=== PATIENT | male | born 1935 | race Caucasian/White ===

== ENCOUNTER 2022-08-11 07:39 | Inpatient (IN) ==
--- NOTE | 2022-08-11 08:12 | Emergency Department Note ---
History of Present Illness General Chief complaint: Chest Pain Stated complaint: CHEST PAIN Time Seen by Provider: 08/11/22 08:00 Source: patient, family ( and daughter who are at the bedide) and RN notes reviewed Mode of arrival: ambulatory Limitations: no limitations History of Present Illness Maximum Pain Intensity: 7 This patient is a 87-year-old male comes in after having achy lower chest/epigastric area pain since around 8:00 he said nothing particular makes it better or worse. He says certain movements may make it worse. It has no pleuritic component no change with breathing. He tried Tums and Rebecca-Pitman without relief. He has had this before but not nearly as long-lasting. He has no known cardiac disease although his brother and father both had bypasses. He reports that he has had no recent cardiac work-up or stress test. Denies nausea vomiting or shortness of breath. No fall or trauma no blood or melena stool. Occasional cough. No fever chills no fall or injury. He feels like if he burps he would feel better. No acid taste in his mouth. Home Medications Medication Instructions Recorded Confirmed Type amlodipine 5 mg tablet 5 mg PO QPM 07/18/22 07/24/22 History ascorbic acid (vitamin C) 1,000 mg 1 g PO QAM 07/18/22 07/24/22 History tablet (Vitamin C) aspirin 81 mg capsule 81 mg PO QPM 07/18/22 07/24/22 History atorvastatin 20 mg tablet (Lipitor) 20 mg PO PM 07/18/22 07/24/22 History cholecalciferol (vitamin D3) 25 25 mcg PO QAM 07/18/22 07/24/22 History mcg (1,000 unit) tablet (Vitamin D3) furosemide 20 mg tablet (Lasix) 20 mg PO QAM 07/18/22 07/24/22 History gabapentin 300 mg tablet 300 mg PO HS 07/18/22 07/24/22 History meclizine 12.5 mg tablet 12.5 mg PO UD PRN Vertigo 07/18/22 07/24/22 History omeprazole 20 mg capsule,delayed 20 mg PO QPM 07/18/22 07/24/22 History release saw palmetto 500 mg capsule 500 mg PO QDL 07/18/22 07/24/22 History Allergies Allergy/AdvReac Type Severity Reaction Status Date / Time No Known Allergies Allergy Verified 07/24/22 08:17 Past Med/Surg History Medical History GERD (gastroesophageal reflux disease) Hearing deficit BL BURGESS HLD (hyperlipidemia) HTN (hypertension) Osteoarthritis Vertigo Surgical History History of appendectomy History of hernia surgery History of tonsillectomy Family History Other No family history of adverse response to anesthesia Social History Smoking Status: Never smoker Second Hand Exposure: No; Hx Alcohol Use: No Hx Substance Use: No Preferred Language: Indian Communication Ability: Effective Telephone Diaphragm Assembler Required: No Current Living Situation: Spouse Feels Safe at Home: Yes Assistive Devices: Glasses and Hearing Aid - Bilateral Review of Systems A total of 10 systems reviewed and were otherwise negative Physical Exam Vital Signs Vital Signs - 24 hr 08/11/22 07:47 08/11/22 07:57 08/11/22 08:07 Temperature 36.7 C Temperature Source Temporal Artery Scan Pulse Rate 76 82 Pulse Rate [Apical] 79 Pulse Rhythm [Apical] Pulse Strength [Apical] Respiratory Rate 16 18 Respiratory Effort / Characteristics Non-Labored Spontaneous Respiratory Depth Normal Normal Respiratory Pattern Blood Pressure 169/91 H Blood Pressure [Right Arm] 154/101 H Blood Pressure Mean 117 Blood Pressure Mean [Right Arm] 118 Blood Pressure Position [Right Arm] Pulse Oximetry 96 96 Oxygen Delivery Method Room Air Room Air Oxygen Flow Rate Sepsis Recent Fever Within 48 Hours No Sepsis New/Unexplained Change in Mental Status No Sepsis Action Taken by Nursing No Action Required 08/11/22 08:15 08/11/22 08:16 08/11/22 11:45 Temperature Temperature Source Pulse Rate 74 78 Pulse Rate [Apical] Pulse Rhythm [Apical] Pulse Strength [Apical] Respiratory Rate 16 14 Respiratory Effort / Characteristics Respiratory Depth Respiratory Pattern Blood Pressure 143/82 H 143/82 H Blood Pressure [Right Arm] Blood Pressure Mean 102 Blood Pressure Mean [Right Arm] Blood Pressure Position [Right Arm] Pulse Oximetry 96 95 96 Oxygen Delivery Method Room Air Room Air Room Air Oxygen Flow Rate Sepsis Recent Fever Within 48 Hours Sepsis New/Unexplained Change in Mental Status Sepsis Action Taken by Nursing 08/11/22 13:30 08/11/22 13:40 08/11/22 13:50 Temperature 36.3 C L Temperature Source Temporal Artery Scan Pulse Rate Pulse Rate [Apical] 83 91 H 89 Pulse Rhythm [Apical] Regular Regular Regular Pulse Strength [Apical] Normal Normal Normal Respiratory Rate 16 18 16 Respiratory Effort / Characteristics Non-Labored Spontaneous Non-Labored Spontaneous Non-Labored Spontaneous Respiratory Depth Normal Normal Normal Respiratory Pattern Regular Regular Regular Blood Pressure Blood Pressure [Right Arm] 130/66 131/70 122/65 Blood Pressure Mean Blood Pressure Mean [Right Arm] 87 90 84 Blood Pressure Position [Right Arm] Lying Semi-fowlers Semi-fowlers Pulse Oximetry 95 94 95 Oxygen Delivery Method Oxymask Oxymask Oxymask Oxygen Flow Rate 6 4 4 Sepsis Recent Fever Within 48 Hours Sepsis New/Unexplained Change in Mental Status Sepsis Action Taken by Nursing 08/11/22 14:00 Temperature Temperature Source Pulse Rate Pulse Rate [Apical] 87 Pulse Rhythm [Apical] Regular Pulse Strength [Apical] Normal Respiratory Rate 16 Respiratory Effort / Characteristics Non-Labored Spontaneous Respiratory Depth Normal Respiratory Pattern Regular Blood Pressure Blood Pressure [Right Arm] 114/65 Blood Pressure Mean Blood Pressure Mean [Right Arm] 81 Blood Pressure Position [Right Arm] Semi-fowlers Pulse Oximetry 91 Oxygen Delivery Method Room Air Oxygen Flow Rate Sepsis Recent Fever Within 48 Hours Sepsis New/Unexplained Change in Mental Status Sepsis Action Taken by Nursing General: Well developed well nourished [id number] older male who in no acute distress, breathing comfortably on room air. Normal speech HEENT: Normal cephalic atraumatic. Pupils are equal round and reactive to light. Extraocular movements are intact. Oropharynx is pink with moist mucous membranes. No swelling of the mouth lips or tongue. Neck: Supple with a midline trachea. No meningeal signs or stiffness, no JVD or bruits. No Stridor. Chest: Clear to auscultation bilaterally. No wheezes or rhonchi. No increased work of breathing. Heart: Regular rate and rhythm without murmurs or gallops. Abdomen: Soft, moderately tender in the right upper quadrant primarily., nondistended without rebound guarding or rigidity. Extremities: No cyanosis clubbing or edema. No calf tenderness or assymetry Spine/Back. Non tender to palpation. No CVA tenderness Skin: Good turgor without rashes. Neurologic exam: Cranial nerves two through 12 are intact. Motor and sensation are intact and symmetrical throughout. Course Administered Medications Sodium Chloride (Nss) 500 mls @ 125 mls/hr IV .Q4H SIMON Stop: 09/10/22 10:14 Last Admin: 08/11/22 10:39 Dose: Not Given Documented By: TJ Discontinued Medications Bupivacaine HCl/Epinephrine Bitart (Bupivacaine/Epinephrine 0.25% 1:200,000 30 M l Vial) Confirm Administered Dose 30 ml .ROUTE .STK-MED ONE Stop: 08/11/22 11:48 Last Admin: 08/11/22 13:22 Dose: 30 ml Documented By: PERRY Sodium Chloride (Nss 1000ml) 1,000 mls @ 999 mls/hr IV .Q1H1M SIMON Stop: 08/11/22 11:45 Last Admin: 08/11/22 10:39 Dose: 999 mls/hr Documented By: TJ Piperacillin Sod/Tazobactam (Sod 3.375 gm/ Dextrose) 100 ml in 115 mls @ 230 ml s/hr IV NOW STA Stop: 08/11/22 11:29 Last Admin: 08/11/22 11:39 Dose: 230 mls/hr Documented By: DEV Ioversol (Optiray 350 100ml) 88 ml IV ONCE ONE Stop: 08/11/22 09:37 Last Admin: 08/11/22 09:40 Dose: 88 ml Documented By: ELIAS Morphine Sulfate (Morphine Sulfate 2 Mg/Ml Carp) 2 mg IV NOW STA Stop: 08/11/22 08:20 Last Admin: 08/11/22 08:26 Dose: 2 mg Documented By: TJ Ondansetron HCl (Ondansetron Inj 2 Mg/Ml 2 Ml Vial) 4 mg IV NOW STA Stop: 08/11/22 08:20 Last Admin: 08/11/22 08:25 Dose: 4 mg Documented By: TJ Medical Decision Making Differential Diagnosis Acute coronary syndrome, arrhythmia, intra-abdominal process, pancreatitis, gallbladder disease, electrolyte or metabolic abnormal Medical Records Attestation: I reviewed the patient's medical records. Home Medications Current Medication List: was personally reviewed by me Laboratory Data Attestation: I reviewed the patient's lab results. 08/11/22 08:00 08/11/22 08:00 Lab Results 08/11/22 08/11/22 08/11/22 Range/Units 08:00 08:00 08:00 WBC 13.23 H (4.8-10.8) K/ul RBC 5.93 (4.70-6.10) M/uL Hgb 17.6 (14.0-18.0) g/dl Hct 52.2 H (42.0-52.0) % MCV 88.0 (80.0-100.0) fL MCH 29.7 (25.0-34.0) pg MCHC 33.7 (32.0-36.0) g/dL RDW Std Deviation 44.5 (36.4-46.3) fL RDW Coeff of Wendy 13.8 (11.5-14.5) % Plt Count 196 (130-400) K/uL MPV 10.1 (9.4-12.4) fL Immature Gran % (Auto) 0.7 % Neut % (Auto) 87.2 % Lymph % (Auto) 4.8 % [place] % (Auto) 7.1 % Eos % (Auto) 0.0 % Baso % (Auto) 0.2 % Neut # (Auto) 11.54 H (1.40-6.50) K/uL Lymph # (Auto) 0.63 L (1.2-3.4) K/uL [place] # (Auto) 0.94 H (0.11-0.59) K/uL Eos # (Auto) 0.00 (0-0.50) K/uL Baso # (Auto) 0.03 (0-0.2) K/uL Immature Gran # (Auto) 0.09 (0.01-0.20) K/uL PT 10.9 (9.0-12.0) Seconds INR 1.0 (0.9-1.1) APTT 26.8 (21.0-31.0) Seconds PTT Ratio 1.0 Sodium 139 (136-145) mmol/L Potassium 4.0 (3.5-5.1) mmol/L Chloride 100 (98-107) mmol/L Carbon Dioxide 26 (21-32) mmol/L Anion Gap 13 H (3-11) BUN 24 H (6-23) mg/dl Creatinine 0.89 (0.6-1.4) mg/dl Est Cr Clr Drug Dosing 65.4 ml/min Est GFR ( Amer) 89.7 ml/min Est GFR (Non-Af Amer) 77.4 ml/min BUN/Creatinine Ratio 27.0 H (10-20) Glucose 156 H (70-99(Fasting)) mg/dl Calcium 9.5 (8.6-10.3) mg/dl Total Bilirubin 0.6 (0.2-1.0) mg/dl AST 16 (13-39) U/L ALT 17 (7-52) U/L Alkaline Phosphatase 51 (34-104) U/L Troponin I High Sens 6.8 (0-20) pg/ml Total Protein 7.5 (6.0-8.3) gm/dl Albumin 4.8 (3.4-5.0) gm/dl Globulin 2.7 (2.5-4.0) gm/dl Albumin/Globulin Ratio 1.8 (0.9-2) Lipase 19 (11-82) U/L Urine Color Urine Appearance (Clear) Urine pH (4.5-7.5) Ur Specific [place] (1.000-1.030) Urine Protein (Negative) Urine Glucose (UA) (Negative) Urine Ketones (Negative) Urine Blood (Negative) Urine Nitrite (Negative) Urine Bilirubin (Negative) Urine Urobilinogen (Negative) Ur Leukocyte Esterase (Negative) SARS-CoV-2, RNA, NAAT (NEGATIVE) 08/11/22 08/11/22 Range/Units 08:26 11:46 WBC (4.8-10.8) K/ul RBC (4.70-6.10) M/uL Hgb (14.0-18.0) g/dl Hct (42.0-52.0) % MCV (80.0-100.0) fL MCH (25.0-34.0) pg MCHC (32.0-36.0) g/dL RDW Std Deviation (36.4-46.3) fL RDW Coeff of Wendy (11.5-14.5) % Plt Count (130-400) K/uL MPV (9.4-12.4) fL Immature Gran % (Auto) % Neut % (Auto) % Lymph % (Auto) % [place] % (Auto) % Eos % (Auto) % Baso % (Auto) % Neut # (Auto) (1.40-6.50) K/uL Lymph # (Auto) (1.2-3.4) K/uL [place] # (Auto) (0.11-0.59) K/uL Eos # (Auto) (0-0.50) K/uL Baso # (Auto) (0-0.2) K/uL Immature Gran # (Auto) (0.01-0.20) K/uL PT (9.0-12.0) Seconds INR (0.9-1.1) APTT (21.0-31.0) Seconds PTT Ratio Sodium (136-145) mmol/L Potassium (3.5-5.1) mmol/L Chloride (98-107) mmol/L Carbon Dioxide (21-32) mmol/L Anion Gap (3-11) BUN (6-23) mg/dl Creatinine (0.6-1.4) mg/dl Est Cr Clr Drug Dosing ml/min Est GFR ( Amer) ml/min Est GFR (Non-Af Amer) ml/min BUN/Creatinine Ratio (10-20) Glucose (70-99(Fasting)) mg/dl Calcium (8.6-10.3) mg/dl Total Bilirubin (0.2-1.0) mg/dl AST (13-39) U/L ALT (7-52) U/L Alkaline Phosphatase (34-104) U/L Troponin I High Sens (0-20) pg/ml Total Protein (6.0-8.3) gm/dl Albumin (3.4-5.0) gm/dl Globulin (2.5-4.0) gm/dl Albumin/Globulin Ratio (0.9-2) Lipase (11-82) U/L Urine Color Yellow Urine Appearance Clear (Clear) Urine pH 8.5 H (4.5-7.5) Ur Specific [place] 1.015 (1.000-1.030) Urine Protein Negative (Negative) Urine Glucose (UA) Negative (Negative) Urine Ketones Negative (Negative) Urine Blood Negative (Negative) Urine Nitrite Negative (Negative) Urine Bilirubin Negative (Negative) Urine Urobilinogen Negative (Negative) Ur Leukocyte Esterase Negative (Negative) SARS-CoV-2, RNA, NAAT NEGATIVE (NEGATIVE) Imaging Data Attestation: I personally reviewed and interpreted this imaging study as follows: My Impression: CAT scan of the abdomen pelvis. The gallbladder upon my evaluation appears to be distended with a thickened wall Radiologist's Impression: Abdomen/Pelvis CT 08/11/22 09:22 CT OF THE ABDOMEN AND PELVIS WITH CONTRAST CLINICAL HISTORY: Epigastric and right upper quadrant pain. COMPARISON STUDY: None. TECHNIQUE: Following IV administration of 88 mL of Optiray, axial images of the abdomen and pelvis were obtained from the lung bases to the proximal femurs. Images were reviewed in the axial, sagittal, and coronal planes. IV contrast was administered without complication. Automated exposure control was utilized for the study. A dose lowering technique was utilized adhering to the principles of ALARA. CT DOSE: 340.59 mGy.cm FINDINGS: Subpleural groundglass opacities within the lower lungs represent atelectasis. There is mild cardiomegaly. No pneumatosis, free air or portal venous gas is present. There is no biliary or pancreatic ductal dilatation. No hepatic lesions. Spleen, adrenal glands, kidneys and pancreas are unremarkable. There is no peripancreatic infiltration. The gallbladder is mildly distended. There is moderate gallbladder wall thickening with pericholecystic fluid. Layering material within the gallbladder is present. These favor gallstones. No evidence for a bowel obstruction. The caliber and wall thickness of small and large bowel are normal. Moderate amount stool within the right colon. The appendix is not visualized. There is no lymphadenopathy. Mild bladder wall thickening. Prostate is enlarged, measuring 5.1 cm in transverse dimension. No acute fracture within the visualized skeletal structures. No suspicious osseous lesions. Major vasculature is patent. Mild aortoiliac atherosclerotic plaque. IMPRESSION: 1. Findings consistent with acute cholecystitis. 2. No bowel obstruction. No bowel wall thickening. Moderate stool within the ascending colon. 3. Bladder wall thickening. This is likely chronic. ACT 112: Negative or not required by law. Electronically signed by: Merritt Rashid M.D. 08/11/2022 9:56 AM ECG Data Attestation: I personally reviewed and interpreted this ECG as follows: Indication: + abdominal pain and + chest pain Rate (beats per minute): 78 Rhythm: + sinus with SA ECG [place]: + Normal ECG ST segments: + Nonspecific ST abnormalities ECG Findings: no PACs or no PVCs Comparison ECG Date: from (12/30/11) Change: the following changes noted (Nonspecific ST changes are now present.) MDM Narrative This patient 88-year-old male comes in with epigastric pain since last night has been constant. He was placed on a monitor technician room C3. Multiple blood testing was obtained IV access was established. His EKG shows an ossific ST abnormalities. Chest x-ray was obtained as well. When I push on his abdomen he does seem to be actually tender in the abdomen more so than the chest in the right upper quadrant which brings the concern for gallbladder as well as cardiac disease or GI/pancreatitis. He was reassessed frequently. I did give him morphine 2 mg IV and Zofran 4 mg IV initially. White count is mildly elevated. He is no significant anemia. He has no significant acrylate or metabolic abnormalities his liver functions and lipase are within normal limits. He did feel significantly better after receiving the IV morphine. White count is elevated. Troponin is negative. EKG does not show any definite ischemic changes. Liver functions and lipase are within normal limits. There is no significant electrolyte or metabolic abnormalities. Given the concern for possible gallbladder disease as well as potentially other intra-abdominal process, I did a CT of the abdomen and findings were consistent with acute cholecystitis. I did discuss case with Dr. Villarreal, who is the surgeon on-call. He promptly came and saw the patient ER is going to take the patient to the operating room for cholecystectomy. The patient did have a negative COVID test. Continuous cardiac monitoring: Orders placed in EMR for continuous cardiac monitoring. Upon my evaluation patient noted be in normal sinus rhythm rate of 70 Impression & Plan Acute cholecystitis, Abdominal pain, Lab test negative for COVID-19 virus, Mild HTN Discharge Plan Visit Data Chief Complaint: Chest Pain Stated Complaint: CHEST PAIN ED Provider: Merrill Jones Discharge Problem: Acute cholecystitis, Abdominal pain, Lab test negative for COVID-19 virus, Mild HTN Patient Disposition: Admitted As Inpatient Discharge Instructions Interventions: ED Discharge Assessment Last Done: 08/11/22 11:45
[2022-08-11] MEDS ORDERED: MoRPHine SULFATE 2 MG/ML CARP IV STA (08:19)
[2022-08-11] MEDS ORDERED: ONDANSETRON INJ 2 MG/ML 2 ML VIAL IV STA (08:19)
[2022-08-11 08:56] LABS: Basophils # (auto) 0.03 K/uL (0-0.2); Basophils % (auto) 0.2 %; Hematocrit (blood only) 52.2 % (42.0-52.0); Hemoglobin 17.6 g/dl (14.0-18.0); Immature Granulocytes # (auto) 0.09 K/uL (0.01-0.20); Immature Granulocytes % (auto) 0.7 %; Lymphocytes # (auto) 0.63 K/uL (1.2-3.4); Lymphocytes % (auto) 4.8 %; Mean Corpuscular Hemoglobin 29.7 pg (25.0-34.0); Mean Corpuscular Hgb Conc 33.7 g/dL (32.0-36.0); Mean Platelet Volume 10.1 fL (9.4-12.4); Monocytes # (auto) 0.94 K/uL (0.11-0.59); Monocytes % (auto) 7.1 %; Neutrophils # (auto) 11.54 K/uL (1.40-6.50); Neutrophils % (auto) 87.2 %; Platelet Count 196 K/uL (130-400); RDW Coefficient of Variation 13.8 % (11.5-14.5); RDW Standard Deviation 44.5 fL (36.4-46.3); Red Blood Count 5.93 M/uL (4.70-6.10); White Blood Count 13.23 K/ul (4.8-10.8)
[2022-08-11 09:00] LABS: Albumin Globulin Ratio 1.8 (0.9-2); Albumin Level 4.8 gm/dl (3.4-5.0); Bilirubin,Total 0.6 mg/dl (0.2-1.0); Calcium 9.5 mg/dl (8.6-10.3); Creatinine Clr Calc Pharmacy 65.4 ml/min; Est GFR (African American) 89.7 ml/min; Est GFR (Non-African American) 77.4 ml/min; Globulin 2.7 gm/dl (2.5-4.0); Total Protein 7.5 gm/dl (6.0-8.3)
[2022-08-11 09:06] LABS: Troponin I High Sensitivity 6.8 pg/ml (0-20)
[2022-08-11 09:24] LABS: Partial Thromboplastin Time 26.8 Seconds (21.0-31.0); Prothrombin Time 10.9 Seconds (9.0-12.0)
[2022-08-11] MEDS ORDERED: OPTIRAY 350 100ml IV ONE (09:36)
--- NOTE | 2022-08-11 09:58 | CT Scan Report ---
CT OF THE ABDOMEN AND PELVIS WITH CONTRAST CLINICAL HISTORY: Epigastric and right upper quadrant pain. COMPARISON STUDY: None. TECHNIQUE: Following IV administration of 88 mL of Optiray, axial images of the abdomen and pelvis we re obtained from the lung bases to the proximal femurs. Images were reviewed in the axial, sagittal, and coronal planes. IV contrast was administered without complication. Automated exposure control wa s utilized for the study. A dose lowering technique was utilized adhering to the principles of ALARA . CT DOSE: 340.59 mGy.cm FINDINGS: Subpleural groundglass opacities within the lower lungs represent atelectasis. There is mil d cardiomegaly. No pneumatosis, free air or portal venous gas is present. There is no biliary or panc reatic ductal dilatation. No hepatic lesions. Spleen, adrenal glands, kidneys and pancreas are unrema rkable. There is no peripancreatic infiltration. The gallbladder is mildly distended. There is modera te gallbladder wall thickening with pericholecystic fluid. Layering material within the gallbladder i s present. These favor gallstones. No evidence for a bowel obstruction. The caliber and wall thicknes s of small and large bowel are normal. Moderate amount stool within the right colon. The appendix is not visualized. There is no lymphadenopathy. Mild bladder wall thickening. Prostate is enlarged, kadie uring 5.1 cm in transverse dimension. No acute fracture within the visualized skeletal structures. No suspicious osseous lesions. Major vasculature is patent. Mild aortoiliac atherosclerotic plaque. IMPRESSION: 1. Findings consistent with acute cholecystitis. 2. No bowel obstruction. No bowel wall thickening. Moderate stool within the ascending colon. 3. Bladder wall thickening. This is likely chronic. ACT 112: Negative or not required by law. Electronically signed by: Merritt Rashid M.D. 08/11/2022 9:56 AM
[2022-08-11] MEDS: SODIUM CHLORIDE 0.9% 500 ML IV SCH ×3 (10:39→22:27)
[2022-08-11] MEDS ORDERED: SODIUM CHLORIDE 0.9% 1000ML 1,000 ML IV SCH (10:45)
--- NOTE | 2022-08-11 10:50 | Anesthesiology Consultation ---
Date of Service August 11, 2022 Assessment & Plan Chart Review Chart Review: Acceptable Risk for Surgery and Patient NOT seen in Pre Admission Testing Consults Requested none ASA [id number] Proposed Anesthesia Anesthesia Type: General History Surgery Operation Date: 08/11/22 12:30 Proposed Procedures p Laparoscopic Cholecystectomy(Not Applicable) - Orestes Villarreal MD Height/Weight Height: 6 ft Weight: 82.8 kg Allergies Allergy/AdvReac Type Severity Reaction Status Date / Time No Known Allergies Allergy Verified 07/24/22 08:17 Medications Home Medications Medication Instructions Recorded Confirmed Last Taken amlodipine 5 mg tablet 5 mg PO QPM 07/18/22 07/24/22 07/23/22 ascorbic acid (vitamin C) 1,000 mg 1 g PO QAM 07/18/22 07/24/22 07/23/22 tablet (Vitamin C) aspirin 81 mg capsule 81 mg PO QPM 07/18/22 07/24/22 07/23/22 atorvastatin 20 mg tablet (Lipitor) 20 mg PO PM 07/18/22 07/24/22 07/23/22 cholecalciferol (vitamin D3) 25 25 mcg PO QAM 07/18/22 07/24/22 07/23/22 mcg (1,000 unit) tablet (Vitamin D3) furosemide 20 mg tablet (Lasix) 20 mg PO QAM 07/18/22 07/24/22 07/23/22 gabapentin 300 mg tablet 300 mg PO HS 07/18/22 07/24/22 07/23/22 meclizine 12.5 mg tablet 12.5 mg PO UD PRN Vertigo 07/18/22 07/24/22 Unknown omeprazole 20 mg capsule,delayed 20 mg PO QPM 07/18/22 07/24/22 07/23/22 release saw palmetto 500 mg capsule 500 mg PO QDL 07/18/22 07/24/22 Unknown Active Medications Generic Name Dose Route Start Last Admin Trade Name Freq PRN Reason Stop Dose Admin Sodium Chloride 500 mls @ 125 mls/hr 08/11/22 10:15 08/11/22 10:39 Nss IV 09/10/22 10:14 Not Given .Q4H SIMON Sodium Chloride 1,000 mls @ 999 mls/hr 08/11/22 10:45 08/11/22 10:39 Nss 1000ml IV 08/11/22 11:45 999 mls/hr .Q1H1M SIMON Administration Past Medical History Medical History GERD (gastroesophageal reflux disease) Hearing deficit BL BURGESS HLD (hyperlipidemia) HTN (hypertension) Osteoarthritis Vertigo Exercise / Class Metabolic Activity II 4-5 Yardwork/Stairs/Walk up hill Past Family History Family History Other No family history of adverse response to anesthesia Past Surgical History Surgical History History of appendectomy History of hernia surgery History of tonsillectomy Past Anesthesia History No Hx of Anesthesia Complications and No Family Hx of Anesthesia Complications History of PONV No Hx of PONV and No Hx of Motion Sickness Social History Smoking Status: Never smoker Hx Alcohol Use: No Hx Substance Use: No substance use type: does not use Physical Exam Vital Signs Last Vital Signs Temp 36.7 C 08/11/22 07:47 Pulse 74 08/11/22 08:16 Resp 16 08/11/22 08:16 BP 143/82 H 08/11/22 08:16 Pulse Ox 95 08/11/22 08:16 O2 Del Method Room Air 08/11/22 08:16 Testing Laboratory Results 08/11/22 08:00 08/11/22 08:00 PT 10.9 Seconds (9.0-12.0) 08/11/22 08:00 INR 1.0 (0.9-1.1) 08/11/22 08:00 APTT 26.8 Seconds (21.0-31.0) 08/11/22 08:00
--- NOTE | 2022-08-11 10:58 | History & Physical Report ---
Date of Service August 11, 2022 Assessment & Plan (1) Acute cholecystitis: Plan: 87-year-old gentleman with 1 day history of right upper quadrant, epigastric, lower chest pain. White blood cell count 13. CT scan demonstrates acute cholecystitis. I discussed risks and benefits of laparoscopic cholecystectomy with him and his family. All questions were answered and they are agreeable to proceed. Consent has been obtained. We will place him on IV fluids and IV antibiotics. We will take him to the operating room as soon as possible. History of Present Illness Primary Care Provider: Sudeep Hayden MD 87-year-old gentleman presents with a 12-hour history of epigastric and lower chest pain radiating to the right side/right upper quadrant. He denies nausea or vomiting. He last ate at 6 PM last night. He denies fevers or chills. He has never had pain like this in the past. He has had a prior appendectomy. He denies cardiac history other than hypertension. He denies allergies to medications. Allergies Allergy/AdvReac Type Severity Reaction Status Date / Time No Known Allergies Allergy Verified 07/24/22 08:17 Home Medications Medication Instructions Recorded Confirmed Type amlodipine 5 mg tablet 5 mg PO QPM 07/18/22 07/24/22 History ascorbic acid (vitamin C) 1,000 mg 1 g PO QAM 07/18/22 07/24/22 History tablet (Vitamin C) aspirin 81 mg capsule 81 mg PO QPM 07/18/22 07/24/22 History atorvastatin 20 mg tablet (Lipitor) 20 mg PO PM 07/18/22 07/24/22 History cholecalciferol (vitamin D3) 25 25 mcg PO QAM 07/18/22 07/24/22 History mcg (1,000 unit) tablet (Vitamin D3) furosemide 20 mg tablet (Lasix) 20 mg PO QAM 07/18/22 07/24/22 History gabapentin 300 mg tablet 300 mg PO HS 07/18/22 07/24/22 History meclizine 12.5 mg tablet 12.5 mg PO UD PRN Vertigo 07/18/22 07/24/22 History omeprazole 20 mg capsule,delayed 20 mg PO QPM 07/18/22 07/24/22 History release saw palmetto 500 mg capsule 500 mg PO QDL 07/18/22 07/24/22 History Past Med/Surg History Medical History GERD (gastroesophageal reflux disease) Hearing deficit BL BURGESS HLD (hyperlipidemia) HTN (hypertension) Osteoarthritis Vertigo Surgical History History of appendectomy History of hernia surgery History of tonsillectomy Family History Other No family history of adverse response to anesthesia Social History Smoking Status: Never smoker Second Hand Exposure: No; Hx Alcohol Use: No Hx Substance Use: No Preferred Language: Wolof Communication Ability: Effective Show Card Letterer Required: No Current Living Situation: Spouse Feels Safe at Home: Yes Assistive Devices: Glasses and Hearing Aid - Bilateral Review of Systems Review of Systems: All systems reviewed & are unremarkable except as noted in HPI & below Physical Exam Constitutional: WD/WN, vitals as above Eyes: PERRL, conjunctivae normal, anicteric sclerae Neck: trachea midline, no thyromegaly Respiratory: normal respiratory effort; no respiratory distress and no labored breathing Cardiovascular: Rate/Rhythm: regular rate and regular rhythm Gastrointestinal (Abdomen): Inspection/Auscultation: abdomen normal to inspe ction; abdomen not distended Percussion/Palpation: + abdomen tender (Right upper quadrant) and abdomen soft; no guarding and abdomen not rigid Skin: no rashes, warm and dry Psychiatric: A+Ox3, euthymic affect Results & Data Results & Data Vital Signs (Past 12 Hours) Vital Signs Temp Pulse Pulse Resp BP BP Pulse Ox 08/11/22 08:16 74 16 143/82 H 95 08/11/22 08:15 96 08/11/22 08:07 82 08/11/22 07:57 79 18 154/101 H 96 08/11/22 07:47 36.7 C 76 16 169/91 H 96 O2 Del Method 08/11/22 08:16 Room Air 08/11/22 08:15 Room Air 08/11/22 08:07 08/11/22 07:57 Room Air 08/11/22 07:47 Room Air Laboratory Results 08/11/22 08/11/22 08/11/22 Range/Units 08:26 08:00 08:00 WBC (4.8-10.8) K/ul RBC (4.70-6.10) M/uL Hgb (14.0-18.0) g/dl Hct (42.0-52.0) % MCV (80.0-100.0) fL MCH (25.0-34.0) pg MCHC (32.0-36.0) g/dL RDW Std Deviation (36.4-46.3) fL RDW Coeff of Wendy (11.5-14.5) % Plt Count (130-400) K/uL MPV (9.4-12.4) fL Immature Gran % (Auto) % Neut % (Auto) % Lymph % (Auto) % [place] % (Auto) % Eos % (Auto) % Baso % (Auto) % Neut # (Auto) (1.40-6.50) K/uL Lymph # (Auto) (1.2-3.4) K/uL [place] # (Auto) (0.11-0.59) K/uL Eos # (Auto) (0-0.50) K/uL Baso # (Auto) (0-0.2) K/uL Immature Gran # (Auto) (0.01-0.20) K/uL PT 10.9 (9.0-12.0) Seconds INR 1.0 (0.9-1.1) APTT 26.8 (21.0-31.0) Seconds PTT Ratio 1.0 Sodium 139 (136-145) mmol/L Potassium 4.0 (3.5-5.1) mmol/L Chloride 100 (98-107) mmol/L Carbon Dioxide 26 (21-32) mmol/L Anion Gap 13 H (3-11) BUN 24 H (6-23) mg/dl Creatinine 0.89 (0.6-1.4) mg/dl Est Cr Clr Drug Dosing 65.4 ml/min Est GFR ( Amer) 89.7 ml/min Est GFR (Non-Af Amer) 77.4 ml/min BUN/Creatinine Ratio 27.0 H (10-20) Glucose 156 H (70-99(Fasting)) mg/dl Calcium 9.5 (8.6-10.3) mg/dl Total Bilirubin 0.6 (0.2-1.0) mg/dl AST 16 (13-39) U/L ALT 17 (7-52) U/L Alkaline Phosphatase 51 (34-104) U/L Troponin I High Sens 6.8 (0-20) pg/ml Total Protein 7.5 (6.0-8.3) gm/dl Albumin 4.8 (3.4-5.0) gm/dl Globulin 2.7 (2.5-4.0) gm/dl Albumin/Globulin Ratio 1.8 (0.9-2) Lipase 19 (11-82) U/L SARS-CoV-2, RNA, NAAT NEGATIVE (NEGATIVE) 08/11/22 Range/Units 08:00 WBC 13.23 H (4.8-10.8) K/ul RBC 5.93 (4.70-6.10) M/uL Hgb 17.6 (14.0-18.0) g/dl Hct 52.2 H (42.0-52.0) % MCV 88.0 (80.0-100.0) fL MCH 29.7 (25.0-34.0) pg MCHC 33.7 (32.0-36.0) g/dL RDW Std Deviation 44.5 (36.4-46.3) fL RDW Coeff of Wendy 13.8 (11.5-14.5) % Plt Count 196 (130-400) K/uL MPV 10.1 (9.4-12.4) fL Immature Gran % (Auto) 0.7 % Neut % (Auto) 87.2 % Lymph % (Auto) 4.8 % [place] % (Auto) 7.1 % Eos % (Auto) 0.0 % Baso % (Auto) 0.2 % Neut # (Auto) 11.54 H (1.40-6.50) K/uL Lymph # (Auto) 0.63 L (1.2-3.4) K/uL [place] # (Auto) 0.94 H (0.11-0.59) K/uL Eos # (Auto) 0.00 (0-0.50) K/uL Baso # (Auto) 0.03 (0-0.2) K/uL Immature Gran # (Auto) 0.09 (0.01-0.20) K/uL PT (9.0-12.0) Seconds INR (0.9-1.1) APTT (21.0-31.0) Seconds PTT Ratio Sodium (136-145) mmol/L Potassium (3.5-5.1) mmol/L Chloride (98-107) mmol/L Carbon Dioxide (21-32) mmol/L Anion Gap (3-11) BUN (6-23) mg/dl Creatinine (0.6-1.4) mg/dl Est Cr Clr Drug Dosing ml/min Est GFR ( Amer) ml/min Est GFR (Non-Af Amer) ml/min BUN/Creatinine Ratio (10-20) Glucose (70-99(Fasting)) mg/dl Calcium (8.6-10.3) mg/dl Total Bilirubin (0.2-1.0) mg/dl AST (13-39) U/L ALT (7-52) U/L Alkaline Phosphatase (34-104) U/L Troponin I High Sens (0-20) pg/ml Total Protein (6.0-8.3) gm/dl Albumin (3.4-5.0) gm/dl Globulin (2.5-4.0) gm/dl Albumin/Globulin Ratio (0.9-2) Lipase (11-82) U/L SARS-CoV-2, RNA, NAAT (NEGATIVE) Diagnostic Findings CT OF THE ABDOMEN AND PELVIS WITH CONTRAST CLINICAL HISTORY: Epigastric and right upper quadrant pain. COMPARISON STUDY: None. TECHNIQUE: Following IV administration of 88 mL of Optiray, axial images of the abdomen and pelvis were obtained from the lung bases to the proximal femurs. Images were reviewed in the axial, sagittal, and coronal planes. IV contrast was administered without complication. Automated exposure control was utilized for the study. A dose lowering technique was utilized adhering to the principles of ALARA. CT DOSE: 340.59 mGy.cm FINDINGS: Subpleural groundglass opacities within the lower lungs represent atelectasis. There is mild cardiomegaly. No pneumatosis, free air or portal venous gas is present. There is no biliary or pancreatic ductal dilatation. No hepatic lesions. Spleen, adrenal glands, kidneys and pancreas are unremarkable. There is no peripancreatic infiltration. The gallbladder is mildly distended. There is moderate gallbladder wall thickening with pericholecystic fluid. Layering material within the gallbladder is present. These favor gallstones. No evidence for a bowel obstruction. The caliber and wall thickness of small and large bowel are normal. Moderate amount stool within the right colon. The appendix is not visualized. There is no lymphadenopathy. Mild bladder wall thickening. Prostate is enlarged, measuring 5.1 cm in transverse dimension. No acute fracture within the visualized skeletal structures. No suspicious osseous lesions. Major vasculature is patent. Mild aortoiliac atherosclerotic plaque. IMPRESSION: 1. Findings consistent with acute cholecystitis. 2. No bowel obstruction. No bowel wall thickening. Moderate stool within the ascending colon. 3. Bladder wall thickening. This is likely chronic.
[2022-08-11] MEDS ORDERED: PIPERACILLIN/TAZOBACTAM 3.375 GM in DEXTROSE 5% 100 ML/100 ML BAG IV STA (11:00)
[2022-08-11] MEDS ORDERED: BUPIVACAINE/EPINEPHRINE 0.25% 1:200,000 30 ML VIAL ONE (11:47)
[2022-08-11 11:55] LABS: Appearance Urine Clear (Clear); Bilirubin Urine Negative (Negative); Blood Urine Negative (Negative); Color Urine Yellow; Glucose Urine UA Negative (Negative); Ketones Urine Negative (Negative); Leukocyte Esterase Urine Negative (Negative); Nitrite Urine Negative (Negative); Protein Urine Negative (Negative); Specific Gravity Urine 1.015 (1.000-1.030); Urobilinogen Urine Negative (Negative); pH Urine 8.5 (4.5-7.5)
--- NOTE | 2022-08-11 11:58 | Communication Note ---
Date of Service: August 11, 2022 EKG (08/11/2022)-NSR @ 78 w/ sinus arrhythmia;NS ST and T wave abnormality
[2022-08-11] MEDS ORDERED: PROPOFOL IV EMULSION 10 MG/ML 20 ML VIAL IV ONE (12:03)
[2022-08-11] MEDS ORDERED: fentaNYL citrate PF 100 MCG/2 ML VIAL ONE (12:04)
[2022-08-11] MEDS ORDERED: SUCCINYLCHOLINE CHLORIDE 20 MG/ML 10 ML VIAL IV ONE (12:06)
[2022-08-11] MEDS ORDERED: ePHEDrine sulfate 50 MG/ML AMP ONE (12:08)
--- NOTE | 2022-08-11 12:28 | Electrocardiogram Report ---
Test Reason : Blood Pressure : / mmHG Vent. Rate : 078 BPM Atrial Rate : 078 BPM P-R Int : 128 ms QRS Dur : 092 ms QT Int : 406 ms P-R-T Axes : 078 024 062 degrees QTc Int : 462 ms Poor data quality, interpretation may be adversely affected Normal sinus rhythm with sinus arrhythmia Diffuse Minor Nonspecific ST and T wave abnormality Abnormal ECG When compared with ECG of 29-DEC-2013 11:55, ST now depressed in Inferior leads Nonspecific T wave abnormality now evident in Inferior leads Nonspecific T wave abnormality now evident in Lateral leads Confirmed by Duncan Vora ([id number]) on 08/11/2022 12:28:11 PM Referred By: REFERRED SELF Confirmed By:Duncan Vora
[2022-08-11] MEDS ORDERED: ROCURONIUM BROMIDE 10 MG/ML 5 ML VIAL IV ONE (12:35)
[2022-08-11] MEDS ORDERED: ONDANSETRON INJ 2 MG/ML 2 ML VIAL ONE (12:35)
[2022-08-11] MEDS ORDERED: LIDOCAINE 2% MPF LOCAL 5 ML VIAL ONE (12:35)
[2022-08-11] MEDS ORDERED: SUGAMMADEX SODIUM 200 MG/2 ML VIAL IV ONE (13:05)
--- NOTE | 2022-08-11 13:20 | Post Operative Brief Note ---
Immediate Post Op Note v1 Date of Surgery August 11, 2022 Pre & Post Diagnosis Operation Date: 08/11/22 12:30 Pre-Op Diagnosis: Acute cholecystitis Post-Op Diagnosis: Acute cholecystitis I identified the patient and participated in the time-out.: Yes Procedure Operation Date: 08/11/22 12:30 Actual Procedures p Laparoscopic Cholecystectomy(Not Applicable) - Orestes Villarreal MD Surgeon Orestes Villarreal MD Studio Potter None Estimated Blood Loss 5 Findings Consistent with Post-Op Diagnosis Acute severe cholecystitis
--- NOTE | 2022-08-11 13:21 | Operative Report ---
Post Operative Report Pre & Post Diagnosis Operation Date: 08/11/22 12:30 Pre-Op Diagnosis: Acute cholecystitis Post-Op Diagnosis: Acute cholecystitis I identified the patient and participated in the time-out.: Yes Procedure Operation Date: 08/11/22 12:30 Actual Procedures p Laparoscopic Cholecystectomy(Not Applicable) - Orestes Villarreal MD Surgeon Orestes Villarreal MD Automatic Folder Seamer None Estimated Blood Loss 5 Findings Consistent with Post-Op Diagnosis Severe acute cholecystitis Specimens Gallbladder Drains None Anesthesia Type General Complications No immediate complications Description of Procedure The patient was taken to the operating room, and placed supine on the operating table. A timeout was performed, perioperative antibiotics were administered, SCD boots were placed. After adequate anesthesia and analgesia was obtained, the abdomen was prepped and draped in the normal sterile fashion. Local anesthetic was injected into and around the proposed incision sites. An incision was made with a 15 blade scalpel in the supraumbilical region and carried down to the level of the fascia. The fascia was grasped with a trach hook, and a varies needle was used to enter the abdominal cavity. The abdomen was insufflated to a pressure of 15 mmHg, and a 11 mm trocar was placed in this location. A 10 mm, 30 degree laparoscope was placed into the abdominal cavity, and the abdomen was surveyed. There were adhesions of the omentum and the duodenum to the gallbladder. There was significant amount of acute edema. Two 5 mm trochars were placed along the right costal margin, and one 5 mm trocar was placed in the subxiphoid region under direct visualization. Adhesions of the omentum and duodenum to the gallbladder were taken down with blunt dissection and judicious use of the electrocautery. The gallbladder was grasped and retracted cephalad and laterally, exposing the triangle of [place]ot. Dissection began in the triangle with a combination of blunt dissection with the [place] dissector, and judicious use of the hook cautery. The cystic duct and cystic artery were dissected free circumferentially, and a critical view of safety was obtained. The cystic duct and cystic artery were clipped and transected, and the gallbladder was removed from the gallbladder fossa with the hook cautery. The camera was switched to a 5 mm, the gallbladder was placed in an Endo Catch bag, and removed via the supraumbilical port site. The camera was switched back to the 10 mm camera, and the abdomen was surveyed again. Hemostasis was checked and attended, and was excellent. The abdomen was copiously irrigated and suctioned free. Again hemostasis was checked and was excellent. All trochars were removed under direct visualization. The abdomen was desufflated. The fascia in the 11 mm port site was closed with a 0 Vicryl suture. The skin was closed with a running 4-0 Monocryl subcuticular stitch. Dermabond was applied. The patient tolerated the procedure without complication, and was transferred in stable condition to the PACU. All instrument, needle, and sponge counts were correct at the end of the case. I attest to the content of the Intraoperative Record and any orders documented therein. Any exceptions are noted below.
[2022-08-11] MEDS ORDERED: ATROPINE SULFATE 0.1 MG/ML 10ML SYR IV PRN (13:41)
[2022-08-11] MEDS ORDERED: NALOXONE HCL 0.4 MG/1 ML VIAL/CARP IV PRN (13:41)
[2022-08-11] MEDS ORDERED: FLUMAZENIL 0.1 MG/1 ML 10 ML VIAL IV PRN (13:41)
[2022-08-11] MEDS ORDERED: PROMETHAZINE HCL 12.5 MG in SODIUM CHLORIDE 0.9% 50 ML IV PRN ×2 (13:41→15:03)
[2022-08-11] MEDS ORDERED: ePHEDrine sulfate 50 MG/ML AMP IV PRN (13:41)
[2022-08-11] MEDS ORDERED: fentaNYL citrate PF 100 MCG/2 ML VIAL IV PRN (13:41)
[2022-08-11] MEDS ORDERED: ONDANSETRON INJ 2 MG/ML 2 ML VIAL IV PRN ×2 (13:41→15:03)
[2022-08-11] MEDS ORDERED: LABETALOL HCL IV 5 MG/ML 20ML IV PRN (13:41)
--- NOTE | 2022-08-11 14:14 | Anesthesiology Progress Note ---
Date of Service August 11, 2022 Anesthesia Post Procedure Vital Signs Vital Signs: Temp Pulse Pulse Resp BP BP Pulse Ox 08/11/22 14:10 37.3 C 83 20 116/59 L 94 08/11/22 14:00 87 16 114/65 91 08/11/22 13:50 89 16 122/65 95 08/11/22 13:40 91 H 18 131/70 94 08/11/22 13:30 36.3 C L 83 16 130/66 95 08/11/22 11:45 78 14 143/82 H 96 08/11/22 08:16 74 16 143/82 H 95 08/11/22 08:15 96 08/11/22 08:07 82 08/11/22 07:57 79 18 154/101 H 96 08/11/22 07:47 36.7 C 76 16 169/91 H 96 O2 Del Method O2 Flow Rate 08/11/22 14:10 Nasal Cannula 2 08/11/22 14:00 Room Air 08/11/22 13:50 Oxymask 4 08/11/22 13:40 Oxymask 4 08/11/22 13:30 Oxymask 6 08/11/22 11:45 Room Air 08/11/22 08:16 Room Air 08/11/22 08:15 Room Air 08/11/22 08:07 08/11/22 07:57 Room Air 08/11/22 07:47 Room Air Pain Intensity Medial Chest: Pain Intensity: 5 Transfer of Care Handoff Completed per policy Notes Mental Status: alert / awake / arousable Patient Amnestic to Procedure: Yes Nausea / Vomiting: adequately controlled Pain: adequately controlled Airway Patency, RR, SpO2: stable & adequate BP & HR: stable & adequate Hydration State: stable & adequate Anesthetic Complications: no major complications apparent
[2022-08-11] MEDS ORDERED: ACETAMINOPHEN 1,000 MG/100 ML VIAL IV PRN (15:03)
[2022-08-11] MEDS ORDERED: diphenhydrAMINE Capsule 25 MG CAP PO PRN (15:03)
[2022-08-11] MEDS ORDERED: MoRPHine SULFATE 2 MG/ML CARP IV PRN (15:03)
[2022-08-11] MEDS ORDERED: oxyCODONE/ACETAMINOPHEN 5mg/325mg TAB PO PRN (15:03)
[2022-08-11] MEDS ORDERED: Nursing to Pharmacy Communication SCH ×2 (19:45→22:30)
[2022-08-12] MEDS: SODIUM CHLORIDE 0.9% 1000ML 1,000 ML IV SCH ×2 (02:00→09:19)
[2022-08-12 07:32] LABS: Basophils # (auto) 0.02 K/uL (0-0.2); Basophils % (auto) 0.2 %; Eosinophils # (auto) 0.04 K/uL (0-0.50); Eosinophils % (auto) 0.4 %; Hematocrit (blood only) 43.4 % (42.0-52.0); Hemoglobin 14.4 g/dl (14.0-18.0); Immature Granulocytes # (auto) 0.04 K/uL (0.01-0.20); Immature Granulocytes % (auto) 0.4 %; Lymphocytes # (auto) 0.92 K/uL (1.2-3.4); Lymphocytes % (auto) 8.9 %; Mean Corpuscular Hemoglobin 29.7 pg (25.0-34.0); Mean Corpuscular Hgb Conc 33.2 g/dL (32.0-36.0); Mean Corpuscular Volume 89.5 fL (80.0-100.0); Monocytes # (auto) 0.72 K/uL (0.11-0.59); Neutrophils # (auto) 8.59 K/uL (1.40-6.50); Neutrophils % (auto) 83.1 %; Platelet Count 153 K/uL (130-400); RDW Coefficient of Variation 14.3 % (11.5-14.5); RDW Standard Deviation 46.6 fL (36.4-46.3); Red Blood Count 4.85 M/uL (4.70-6.10); White Blood Count 10.33 K/ul (4.8-10.8)
[2022-08-12 07:49] LABS: Albumin Level 3.4 gm/dl (3.4-5.0); BUN Creatinine Ratio 16.3 (10-20); Bilirubin Direct 2.6 mg/dl (0-0.2); Bilirubin,Total 4.2 mg/dl (0.2-1.0); Creatinine Clr Calc Pharmacy 59.4 ml/min; Est GFR (African American) 80.6 ml/min; Est GFR (Non-African American) 69.5 ml/min; Potassium 3.9 mmol/L (3.5-5.1); Total Protein 5.3 gm/dl (6.0-8.3)
[2022-08-12] MEDS: ENOXAPARIN INJ 30 MG/0.3 ML SYR SQ SCH (09:17)
--- NOTE | 2022-08-12 09:27 | Gastrointestinal Consultation ---
Date of Consultation August 12, 2022 Assessment & Plan (1) Elevated LFTs: Suggests that he has passed some stones. Plan 1. N.p.o. 2. Discussed by [place] miquel with Dr. Su Shields who is covering biliary issues today. ERCP is indicated for choledocholithiasis. Will discuss w anesthesia - if can be done today at 3:30PM as he has already eaten. If not then will schedule for tomorrow. Supervising Physician Co-Signing Physician Notes I performed a history and physical examination of the patient today, including specifically on physical exam - soft abdomen. I have discussed the patient's management with the advanced practitioner. Please refer to the nurse practitioner's note for the documented findings and plan of care. History of Present Illness Reason for Consultation: elevated LFTs s/p lap jose r for acute cholecystiti Requesting Physician: Orestes Villarreal MD Attending Physician: Orestes Villarreal MD History of Present Illness Mr. Curt Romero is an 87 yr old male pt of Dr. Hayden with a history of GERD, HTN, hyperlipidemia, arthritis who presented to the emergency department August 11 for pain that had started the evening before. Imaging was consistent with acute cholecystitis, with normal bile ducts LFTs were normal at that point. He underwent an uncomplicated laparoscopic cholecystectomy yesterday and is feeling well this morning, including eating regular diet without any nausea or pain. However, his LFTs were noted to be significantly elevated: T. bili 4.2, D bili 2.6, AST 439, ALT 715, alkaline phosphatase remain normal. GI is consulted to consider bile duct abnormalities and possible ERCP. Allergies Allergy/AdvReac Type Severity Reaction Status Date / Time No Known Allergies Allergy Verified 07/24/22 08:17 Home Medications Medication Instructions Recorded Confirmed Type amlodipine 5 mg tablet 5 mg PO QPM 07/18/22 08/12/22 History ascorbic acid (vitamin C) 1,000 mg 1 g PO QAM 07/18/22 08/12/22 History tablet (Vitamin C) aspirin 81 mg capsule 81 mg PO QPM 07/18/22 08/12/22 History atorvastatin 20 mg tablet (Lipitor) 20 mg PO PM 07/18/22 08/12/22 History cholecalciferol (vitamin D3) 25 25 mcg PO QAM 07/18/22 08/12/22 History mcg (1,000 unit) tablet (Vitamin D3) furosemide 20 mg tablet (Lasix) 20 mg PO QAM 07/18/22 08/12/22 History gabapentin 300 mg tablet 300 mg PO HS 07/18/22 08/12/22 History meclizine 12.5 mg tablet 12.5 mg PO UD PRN Vertigo 07/18/22 08/12/22 History omeprazole 20 mg capsule,delayed 20 mg PO QPM 07/18/22 08/12/22 History release saw palmetto 500 mg capsule 500 mg PO QDL 07/18/22 08/12/22 History Patient History Medical History GERD (gastroesophageal reflux disease) Hearing deficit BL BURGESS HLD (hyperlipidemia) HTN (hypertension) Optic neuritis Osteoarthritis Vertigo Surgical History History of appendectomy History of hernia surgery History of tonsillectomy Family History Other No family history of adverse response to anesthesia Social History Smoking Status: Never smoker Second Hand Exposure: No; Do You Dip or Chew Tobacco: No; Tobacco Cessation Education Requested by Patient: No Hx Alcohol Use: No Hx Substance Use: No Preferred Language: Belarusian Communication Ability: Effective Vessel Manager Required: No Beliefs That Will Affect Care: None Current Living Situation: Spouse Other Information That Helps Us Care for You: No Feels Safe at Home: Yes Safety Concerns: Feels Safe At This Time Assistive Devices: None Review of Systems Review of Systems: ROS: Gen: Denies weakness, fevers, weight loss Eyes: No eye redness, or pain, no recent vision changes Resp: No SOB, no cough Cardio: No palpitations/irregular beats, no chest pain GI: Right upper quadrant pain resolved since surgery now very minimal diffuse abdominal discomfort : Denies pain on urination Skin: No jaundice, itching or new rashes Total of 12 systems reviewed all others negative Physical Exam Constitutional: WD/WN, vitals as above Eyes: PERRL, conjunctivae normal, anicteric sclerae ENMT: external ear and nose normal, oropharynx normal Neck: trachea midline, no thyromegaly Respiratory: normal respiratory effort, lungs clear to auscultation Cardiovascular: RRR, no murmur, no edema Gastrointestinal (Abdomen): BS are normal. Abdomen is soft, nondistended, laparoscopic Sommer incisions are, dry, without discharge and only minimal redness. He is minimally tender to palpation. Musculoskeletal: no cyanosis or clubbing, extremities motor strength 5/5 Skin: no rashes, warm and dry Neurologic: patellar DTR's 2+ bilat, sensation intact Psychiatric: A+Ox3, euthymic affect Lymphatic: no cervical or axillary lymphadenopathy Results & Data Vital Signs (Past 12 Hours) Vital Signs Temp Pulse Resp BP Pulse Ox O2 Del Method 08/12/22 07:18 37.2 C 74 18 120/69 92 Room Air 08/12/22 04:30 36.6 C 80 16 130/74 94 Room Air 08/12/22 00:00 37.4 C 82 16 98/55 L 93 Room Air Laboratory Results WBC 10.3, Hb 14.4, HCT 43.4, PLT S153, NA 140, K3.9, CL 107, CO2 26, BUN 16, CR 0.98, glucose 99 See HPI for LFTs. Diagnostic Findings CTAP with IV contrast prior to surgery on 08/11/2022: 1. Findings consistent with acute cholecystitis. 2. No bowel obstruction. No bowel wall thickening. Moderate stool within the ascending colon. 3. Bladder wall thickening. This is likely chronic.
--- NOTE | 2022-08-12 10:23 | Surgery Progress Note ---
Date of Service August 12, 2022 Assessment & Plan (1) Elevated LFTs: (2) Acute cholecystitis: Plan POD #1 status post laparoscopic cholecystectomy LFTs elevated including total bilirubin and direct bilirubin this morning We will consult GI for possible EUS/ERCP Most likely some debris/stones passed into the common bile duct during surgery Keep n.p.o. for now for possible procedure Admission and Anticipated Discharge Date Admission Date: August 11, 2022 Subjective POD #1 status post laparoscopic cholecystectomy for acute cholecystitis. Feeling well this morning. Tolerated breakfast. No nausea or vomiting. Minimal pain. Physical Exam Physical Exam: NAD, & O x3 Abdomen: Soft, nontender, nondistended; incisions healing well without erythema or discharge Dermabond in place Results & Data Vital Signs (Past 12 Hours) Vital Signs Temp Pulse Resp BP Pulse Ox O2 Del Method 08/12/22 07:18 37.2 C 74 18 120/69 92 Room Air 08/12/22 04:30 36.6 C 80 16 130/74 94 Room Air 08/12/22 00:00 37.4 C 82 16 98/55 L 93 Room Air Laboratory Results 08/12/22 08/12/22 08/11/22 Range/Units 06:52 06:52 11:46 WBC 10.33 (4.8-10.8) K/ul RBC 4.85 (4.70-6.10) M/uL Hgb 14.4 D (14.0-18.0) g/dl Hct 43.4 (42.0-52.0) % MCV 89.5 (80.0-100.0) fL MCH 29.7 (25.0-34.0) pg MCHC 33.2 (32.0-36.0) g/dL RDW Std Deviation 46.6 H (36.4-46.3) fL RDW Coeff of Wendy 14.3 (11.5-14.5) % Plt Count 153 (130-400) K/uL MPV 10.0 (9.4-12.4) fL Immature Gran % (Auto) 0.4 % Neut % (Auto) 83.1 % Lymph % (Auto) 8.9 % [place] % (Auto) 7.0 % Eos % (Auto) 0.4 % Baso % (Auto) 0.2 % Neut # (Auto) 8.59 H (1.40-6.50) K/uL Lymph # (Auto) 0.92 L (1.2-3.4) K/uL [place] # (Auto) 0.72 H (0.11-0.59) K/uL Eos # (Auto) 0.04 (0-0.50) K/uL Baso # (Auto) 0.02 (0-0.2) K/uL Immature Gran # (Auto) 0.04 (0.01-0.20) K/uL Sodium 140 (136-145) mmol/L Potassium 3.9 (3.5-5.1) mmol/L Chloride 107 (98-107) mmol/L Carbon Dioxide 26 (21-32) mmol/L Anion Gap 7 (3-11) BUN 16 (6-23) mg/dl Creatinine 0.98 (0.6-1.4) mg/dl Est Cr Clr Drug Dosing 59.4 ml/min Est GFR ( Amer) 80.6 ml/min Est GFR (Non-Af Amer) 69.5 ml/min BUN/Creatinine Ratio 16.3 (10-20) Glucose 99 (70-99(Fasting)) mg/dl Calcium 8.0 L (8.6-10.3) mg/dl Total Bilirubin 4.2 H D (0.2-1.0) mg/dl Direct Bilirubin 2.6 H (0-0.2) mg/dl AST 439 H (13-39) U/L ALT 715 H (7-52) U/L Alkaline Phosphatase 59 (34-104) U/L Total Protein 5.3 L D (6.0-8.3) gm/dl Albumin 3.4 (3.4-5.0) gm/dl Urine Color Yellow Urine Appearance Clear (Clear) Urine pH 8.5 H (4.5-7.5) Ur Specific [place] 1.015 (1.000-1.030) Urine Protein Negative (Negative) Urine Glucose (UA) Negative (Negative) Urine Ketones Negative (Negative) Urine Blood Negative (Negative) Urine Nitrite Negative (Negative) Urine Bilirubin Negative (Negative) Urine Urobilinogen Negative (Negative) Ur Leukocyte Esterase Negative (Negative)
--- NOTE | 2022-08-12 12:36 | Communication Note ---
Date of Service: August 12, 2022 Per patient's request (via the patient's RN who provided phone number for the daughter), I called the pt's daughter, named Marie at [phone]) and explained the reason for scheduling ERCP tomorrow, specifically that the jump in the LFTs suggests stones/sludge in the common bile duct, and that left untreated, this would most likely cause him pain and or serious infection. The procedure was described in detail including techniques, risk of pancreatitis. She will make the rest of the family aware. Likely, one of her siblings will bring the pt's into the hospital tomorrow to be here at the time of the procedure.
--- NOTE | 2022-08-12 16:35 | Hospitalist Consultation ---
Date of Consultation August 12, 2022 Assessment & Plan (1) Acute cholecystitis: POD #1 Lap Yue for Acute Cholecystitis - LFTs elevated today, which is suspicious for CBD stone/sludge. Pt scheduled for ERCP tomorrow. - Pain control, diet, activity per primary service/GI - Encourage incentive spirometry, OOB as able - Labs tomorrow AM (2) Mild HTN: Reviewed med rec with patient - will resume outpatient amlodipine. Hold furosemide for now. (3) HLD (hyperlipidemia): (4) GERD (gastroesophageal reflux disease): Resume once daily PPI Plan Pt seen and reviewed with collaborating physician, Dr. Sorto. Plan of care discussed and as above. Thank you for this consultation. We will continue to follow patient with you. A member of the [facility]ist team is available 25/11 via the role in [employer]. Please don't hesitate to reach out with questions. Debbie Terrazas PA-C Supervising Physician Co-Signing Physician Notes I have seen and examined the patient and have discussed the case with the provider above. I agree with the assessment and plan as stated. 87 yo M s/p lap yue, pain controlled. No nausea. Doing well post operatively and tolerating clear liquids. Plans for ERCP tomorrow. Unremarkable physical exam including closed laparoscopy sites that are well healing. Abdomen is NTND. History and medications were reviewed and agree with recommendations outlined above. DO Macario History of Present Illness Reason for Consultation: Medical Management Requesting Physician: Dr. Orestes Villarreal Attending Physician: Orestes Villarreal MD History of Present Illness This is an 87 y/o male with a history of HTN, CKD3, dyslipidemia, optic neuritis, hearing loss, and GERD who presented to the ED yesterday with several hours of lower chest pain radiating to the RUQ with imaging consistent with acute cholecystitis. Yesterday afternoon he underwent lap yue by Dr. Villarreal. Labs today showed a bump in his LFTs and bilirubin concerning for possible retained stone/sludge in the CBD so ERCP is planned for tomorrow. We have been consulted to assist with medical management for his chronic medical issues. Currently, pt is seen OOB in the chair and reports feeling well. The pain that he came in with is "99% better" with only some residual soreness at incision sites. He denies nausea, vomiting, dizziness, BURGESS, palpitations, shortness of breath. He tolerated solid food for breakfast. When reviewing his medication list, he reports only taking the gabapentin once daily, not twice daily as prescribed, since he finds this just as effective. He takes the furosemide due to a history of hyperkalemia but reports he may avoid taking it if he is going to be out and about. He also notes recent cataract surgery, which he tolerated without difficulty, though vision in that eye is not back to baseline. He has chronic vision and hearing issues. Allergies Allergy/AdvReac Type Severity Reaction Status Date / Time No Known Allergies Allergy Verified 07/24/22 08:17 Home Medications Medication Instructions Recorded Confirmed Type amlodipine 5 mg tablet 5 mg PO QPM 07/18/22 08/12/22 History ascorbic acid (vitamin C) 1,000 mg 1 g PO QAM 07/18/22 08/12/22 History tablet (Vitamin C) aspirin 81 mg capsule 81 mg PO QPM 07/18/22 08/12/22 History atorvastatin 20 mg tablet (Lipitor) 20 mg PO PM 07/18/22 08/12/22 History cholecalciferol (vitamin D3) 25 25 mcg PO QAM 07/18/22 08/12/22 History mcg (1,000 unit) tablet (Vitamin D3) furosemide 20 mg tablet (Lasix) 20 mg PO QAM 07/18/22 08/12/22 History gabapentin 300 mg tablet 300 mg PO HS 07/18/22 08/12/22 History meclizine 12.5 mg tablet 12.5 mg PO UD PRN Vertigo 07/18/22 08/12/22 History omeprazole 20 mg capsule,delayed 20 mg PO QPM 07/18/22 08/12/22 History release saw palmetto 500 mg capsule 500 mg PO QDL 07/18/22 08/12/22 History Patient History Medical History GERD (gastroesophageal reflux disease) Hearing deficit BL BURGESS HLD (hyperlipidemia) HTN (hypertension) Optic neuritis Osteoarthritis Vertigo Surgical History History of appendectomy History of hernia surgery History of tonsillectomy Family History Other No family history of adverse response to anesthesia Social History Smoking Status: Never smoker Second Hand Exposure: No; Do You Dip or Chew Tobacco: No; Tobacco Cessation Education Requested by Patient: No Hx Alcohol Use: No Hx Substance Use: No Preferred Language: Yi Communication Ability: Effective Belt Dresser Required: No Beliefs That Will Affect Care: None Current Living Situation: Spouse Other Information That Helps Us Care for You: No Feels Safe at Home: Yes Safety Concerns: Feels Safe At This Time Assistive Devices: None Review of Systems Review of Systems: All systems reviewed & are unremarkable except as noted in HPI & below Constitutional: no fever, no chills and no anorexia Eyes: + problem reported (chronic vision issues due to optic neuritis) Ear, Nose, Mouth, Throat: no sore throat and no dysphagia Respiratory: no cough and no dyspnea Cardiovascular: no chest pain, no palpitations, no syncope and no edema Gastrointestinal: as per Subjective / HPI Genitourinary: no dysuria or no hematuria Musculoskeletal: no back pain and no neck pain Integumentary: no rash Neurologic: no dizziness, no headache(s) and no confusion Psychiatric: no depression and no anxiety Physical Exam Constitutional: well developed and well nourished; no acute distress Eyes: + anicteric sclerae ENMT: Ears: + hearing impairment (hearing aid in place) Neck: trachea midline Respiratory: no respiratory distress and no labored breathing Auscultation: lungs clear to auscultation bilaterally; no rales, no rhonchi and no wheezes Cardiovascular: Rate/Rhythm: regular rate and regular rhythm Vessels: radial pulses present Extremities: no pedal edema Gastrointestinal (Abdomen): Inspection/Auscultation: normal bowel sounds; abdomen not distended Percussion/Palpation: + abdomen tender (minimal RUQ tender to deep palp) and abdomen soft Musculoskeletal: Head/Neck/Chest: normocephalic, head atraumatic and neck supple Skin: no rashes, warm and dry Neurologic: moves all extremities; no focal motor deficits and not confused Psychiatric: A+Ox3, euthymic affect Results & Data Results & Data Vital Signs (Past 12 Hours) Vital Signs Temp Pulse Resp BP Pulse Ox O2 Del Method 08/12/22 15:01 36.7 C 65 16 134/74 97 Room Air 08/12/22 09:17 Room Air 08/12/22 07:18 37.2 C 74 18 120/69 92 Room Air 08/12/22 04:30 36.6 C 80 16 130/74 94 Room Air Laboratory Results Laboratory Results - last 24 hr 08/12/22 08/12/22 06:52 06:52 WBC 10.33 RBC 4.85 Hgb 14.4 D Hct 43.4 MCV 89.5 MCH 29.7 MCHC 33.2 RDW Std Deviation 46.6 H RDW Coeff of Wendy 14.3 Plt Count 153 MPV 10.0 Immature Gran % (Auto) 0.4 Neut % (Auto) 83.1 Lymph % (Auto) 8.9 Will % (Auto) 7.0 Eos % (Auto) 0.4 Baso % (Auto) 0.2 Neut # (Auto) 8.59 H Lymph # (Auto) 0.92 L Will # (Auto) 0.72 H Eos # (Auto) 0.04 Baso # (Auto) 0.02 Immature Gran # (Auto) 0.04 Sodium 140 Potassium 3.9 Chloride 107 Carbon Dioxide 26 Anion Gap 7 BUN 16 Creatinine 0.98 Est Cr Clr Drug Dosing 59.4 Est GFR ( Amer) 80.6 Est GFR (Non-Af Amer) 69.5 BUN/Creatinine Ratio 16.3 Glucose 99 Calcium 8.0 L Total Bilirubin 4.2 H D Direct Bilirubin 2.6 H AST 439 H ALT 715 H Alkaline Phosphatase 59 Total Protein 5.3 L D Albumin 3.4 Diagnostic Findings Abdomen/Pelvis CT 08/11/22 09:22 CT OF THE ABDOMEN AND PELVIS WITH CONTRAST CLINICAL HISTORY: Epigastric and right upper quadrant pain. COMPARISON STUDY: None. TECHNIQUE: Following IV administration of 88 mL of Optiray, axial images of the abdomen and pelvis were obtained from the lung bases to the proximal femurs. Images were reviewed in the axial, sagittal, and coronal planes. IV contrast was administered without complication. Automated exposure control was utilized for the study. A dose lowering technique was utilized adhering to the principles of ALARA. CT DOSE: 340.59 mGy.cm FINDINGS: Subpleural groundglass opacities within the lower lungs represent atelectasis. There is mild cardiomegaly. No pneumatosis, free air or portal venous gas is present. There is no biliary or pancreatic ductal dilatation. No hepatic lesions. Spleen, adrenal glands, kidneys and pancreas are unremarkable. There is no peripancreatic infiltration. The gallbladder is mildly distended. There is moderate gallbladder wall thickening with pericholecystic fluid. Layering material within the gallbladder is present. These favor gallstones. No evidence for a bowel obstruction. The caliber and wall thickness of small and large bowel are normal. Moderate amount stool within the right colon. The appendix is not visualized. There is no lymphadenopathy. Mild bladder wall thickening. Prostate is enlarged, measuring 5.1 cm in transverse dimension. No acute fracture within the visualized skeletal structures. No suspicious osseous lesions. Major vasculature is patent. Mild aortoiliac atherosclerotic plaque. IMPRESSION: 1. Findings consistent with acute cholecystitis. 2. No bowel obstruction. No bowel wall thickening. Moderate stool within the ascending colon. 3. Bladder wall thickening. This is likely chronic. ACT 112: Negative or not required by law. Electronically signed by: Merritt Rashid M.D. 08/11/2022 9:56 AM Medications Administered Enoxaparin Sodium (Enoxaparin Inj 30 Mg/0.3 Ml Syr) 30 mg SQ Q24H SIMON Stop: 09/11/22 08:29 Last Admin: 08/12/22 09:17 Dose: 30 mg Documented By: TAWNY Sodium Chloride (Nss 1000ml) 1,000 mls @ 50 mls/hr IV .Q20H SIMON Stop: 09/11/22 01:59 Last Infusion: 08/12/22 10:30 Dose: 50 mls/hr Documented By: Admin: 08/12/22 09:19 Dose: 125 mls/hr Documented By: Infusion: 08/12/22 09:19 Dose: 125 mls/hr Documented By: Admin: 08/12/22 02:00 Dose: 125 mls/hr Documented By: KAIT Discontinued Medications Bupivacaine HCl/Epinephrine Bitart (Bupivacaine/Epinephrine 0.25% 1:200,000 30 Ml Vial) Confirm Administered Dose 30 ml .ROUTE .[employer] [facility] Stop: 08/11/22 11:48 Last Admin: 08/11/22 13:22 Dose: 30 ml Documented By: PERRY Sodium Chloride (Nss) 500 mls @ 125 mls/hr IV .Q4H SIMON Stop: 08/12/22 01:59 Last Infusion: 08/12/22 02:00 Dose: 0 mls/hr Documented By: Admin: 08/11/22 22:27 Dose: Not Given Documented By: Infusion: 08/11/22 22:15 Dose: 125 mls/hr Documented By: Admin: 08/11/22 17:59 Dose: 125 mls/hr Documented By: [facility] Admin: 08/11/22 10:39 Dose: Not Given Documented By: TJ Sodium Chloride (Nss 1000ml) 1,000 mls @ 999 mls/hr IV .Q1H1M SIMON Stop: 08/11/22 11:45 Last Infusion: 08/11/22 11:40 Dose: 0 mls/hr Documented By: Admin: 08/11/22 10:39 Dose: 999 mls/hr Documented By: TJ Piperacillin Sod/Tazobactam (Sod 3.375 gm/ Dextrose) 100 ml in 115 mls @ 230 mls/hr IV NOW STA Stop: 08/11/22 11:29 Last Infusion: 08/11/22 12:09 Dose: 0 mls/hr Documented By: [facility] Admin: 08/11/22 11:39 Dose: 230 mls/hr Documented By: DEV Ioversol (Optiray 350 100ml) 88 ml IV ONCE ONE Stop: 08/11/22 09:37 Last Admin: 08/11/22 09:40 Dose: 88 ml Documented By: ELIAS Morphine Sulfate (Morphine Sulfate 2 Mg/Ml Carp) 2 mg IV NOW STA Stop: 08/11/22 08:20 Last Admin: 08/11/22 08:26 Dose: 2 mg Documented By: TJ Ondansetron HCl (Ondansetron Inj 2 Mg/Ml 2 Ml Vial) 4 mg IV NOW STA Stop: 08/11/22 08:20 Last Admin: 08/11/22 08:25 Dose: 4 mg Documented By: TJ
--- NOTE | 2022-08-12 17:36 | Anesthesiology Consultation ---
Date of Service August 12, 2022 Assessment & Plan Chart Review Chart Review: Acceptable Risk for Surgery and Patient NOT seen in Pre Admission Testing History Surgery Operation Date: 08/11/22 12:30 Proposed Procedures p Laparoscopic Cholecystectomy(Not Applicable) - Orestes Villarreal MD Operation Date: 08/13/22 07:00 Proposed Procedures p Endoscopic Retrograde Cholangiopancreatogram - Julian Shields MD Height/Weight Height: 6 ft Weight: 82.8 kg Allergies Allergy/AdvReac Type Severity Reaction Status Date / Time No Known Allergies Allergy Verified 07/24/22 08:17 Medications Home Medications Medication Instructions Recorded Confirmed Last Taken amlodipine 5 mg tablet 5 mg PO QPM 07/18/22 08/12/22 07/23/22 ascorbic acid (vitamin C) 1,000 mg 1 g PO QAM 07/18/22 08/12/22 07/23/22 tablet (Vitamin C) aspirin 81 mg capsule 81 mg PO QPM 07/18/22 08/12/22 07/23/22 atorvastatin 20 mg tablet (Lipitor) 20 mg PO PM 07/18/22 08/12/22 07/23/22 cholecalciferol (vitamin D3) 25 25 mcg PO QAM 07/18/22 08/12/22 07/23/22 mcg (1,000 unit) tablet (Vitamin D3) furosemide 20 mg tablet (Lasix) 20 mg PO QAM 07/18/22 08/12/22 07/23/22 gabapentin 300 mg tablet 300 mg PO HS 07/18/22 08/12/22 07/23/22 meclizine 12.5 mg tablet 12.5 mg PO UD PRN Vertigo 07/18/22 08/12/22 Unknown omeprazole 20 mg capsule,delayed 20 mg PO QPM 07/18/22 08/12/22 07/23/22 release saw palmetto 500 mg capsule 500 mg PO QDL 07/18/22 08/12/22 Unknown Active Medications Generic Name Dose Route Start Last Admin Trade Name Freq PRN Reason Stop Dose Admin Enoxaparin Sodium 30 mg 08/12/22 08:30 08/12/22 09:17 Enoxaparin Inj 30 Mg/0.3 Ml Syr SQ 09/11/22 08:29 30 mg Q24H SIMON Administration Sodium Chloride 1,000 mls @ 50 mls/hr 08/12/22 02:00 08/12/22 10:30 Nss 1000ml IV 09/11/22 01:59 50 mls/hr .Q20H SIMON Infusion NPO Date Last Intake of Fluids: 08/11/22 Time Last Intake of Fluids: 00:01 Date Last Intake of Solids: 08/10/22 Time Last Intake of Solids: 18:00 Past Medical History Medical History GERD (gastroesophageal reflux disease) Hearing deficit BL BURGESS HLD (hyperlipidemia) HTN (hypertension) Optic neuritis Osteoarthritis Vertigo Past Family History Family History Other No family history of adverse response to anesthesia Past Surgical History Surgical History History of appendectomy History of hernia surgery History of tonsillectomy Social History Smoking Status: Never smoker Do You Dip or Chew Tobacco: No Hx Alcohol Use: No Hx Substance Use: No substance use type: does not use Physical Exam Vital Signs Last Vital Signs Temp 36.7 C 08/12/22 15:01 Pulse 65 08/12/22 15:01 Resp 16 08/12/22 15:01 BP 134/74 08/12/22 15:01 Pulse Ox 97 08/12/22 15:01 O2 Del Method Room Air 08/12/22 15:01 O2 Flow Rate 3 08/11/22 16:33 Testing Laboratory Results 08/12/22 06:52 08/12/22 06:52 PT 10.9 Seconds (9.0-12.0) 08/11/22 08:00 INR 1.0 (0.9-1.1) 08/11/22 08:00 APTT 26.8 Seconds (21.0-31.0) 08/11/22 08:00 Urine Color Yellow 08/11/22 11:46 Urine Appearance Clear (Clear) 08/11/22 11:46 Urine pH 8.5 (4.5-7.5) H 08/11/22 11:46 Ur Specific [place] 1.015 (1.000-1.030) 08/11/22 11:46 Urine Protein Negative (Negative) 08/11/22 11:46 Urine Glucose (UA) Negative (Negative) 08/11/22 11:46 Urine Ketones Negative (Negative) 08/11/22 11:46 Urine Nitrite Negative (Negative) 08/11/22 11:46 Ur Leukocyte Esterase Negative (Negative) 08/11/22 11:46
[2022-08-12] MEDS: PANTOprazole 40 MG in SYRINGE 0 ML IV SCH (18:19)
[2022-08-12] MEDS: GABAPENTIN 300 MG CAP PO SCH (20:29)
[2022-08-12] MEDS: ATORVASTATIN 20 MG TAB PO SCH (20:29)
[2022-08-12] MEDS: amLODIPine BESYLATE 5 MG TAB PO SCH (20:29)
[2022-08-13] MEDS ORDERED: Nursing to Pharmacy Communication SCH ×2 (03:00→20:30)
[2022-08-13] MEDS: SODIUM CHLORIDE 0.9% 1000ML 1,000 ML IV SCH (06:40)
[2022-08-13 06:41] LABS: Basophils # (auto) 0.02 K/uL (0-0.2); Basophils % (auto) 0.3 %; Eosinophils # (auto) 0.18 K/uL (0-0.50); Eosinophils % (auto) 2.4 %; Hematocrit (blood only) 42.3 % (42.0-52.0); Hemoglobin 14.2 g/dl (14.0-18.0); Immature Granulocytes # (auto) 0.04 K/uL (0.01-0.20); Immature Granulocytes % (auto) 0.5 %; Lymphocytes # (auto) 0.93 K/uL (1.2-3.4); Lymphocytes % (auto) 12.4 %; Mean Corpuscular Hemoglobin 29.5 pg (25.0-34.0); Mean Corpuscular Hgb Conc 33.6 g/dL (32.0-36.0); Mean Corpuscular Volume 87.9 fL (80.0-100.0); Monocytes # (auto) 0.61 K/uL (0.11-0.59); Monocytes % (auto) 8.1 %; Neutrophils # (auto) 5.74 K/uL (1.40-6.50); Neutrophils % (auto) 76.3 %; Platelet Count 151 K/uL (130-400); RDW Coefficient of Variation 14.4 % (11.5-14.5); RDW Standard Deviation 46.6 fL (36.4-46.3); Red Blood Count 4.81 M/uL (4.70-6.10); White Blood Count 7.52 K/ul (4.8-10.8)
--- NOTE | 2022-08-13 06:50 | Surgery Progress Note ---
Date of Service August 13, 2022 Assessment & Plan (1) Elevated LFTs: (2) Acute cholecystitis: Plan POD #2 status post laparoscopic cholecystectomy LFTs elevated including total bilirubin and direct bilirubin yesterday - recheck this am set for EUS/ERCP this afternoon Most likely some debris/stones passed into the common bile duct during surgery Keep n.p.o. for now Admission and Anticipated Discharge Date Admission Date: August 11, 2022 Subjective POD #2 status post laparoscopic cholecystectomy for acute cholecystitis. Feeling well this morning. tolerated diet yesterday. No nausea or vomiting. Minimal pain. Physical Exam Physical Exam: NAD, & O x3 Abdomen: Soft, nontender, nondistended; incisions healing well without erythema or discharge Dermabond in place Results & Data Vital Signs (Past 12 Hours) Vital Signs Temp Pulse Resp BP Pulse Ox O2 Del Method 08/12/22 20:28 37.0 C 62 16 130/72 96 Room Air
[2022-08-13 07:15] LABS: Albumin Level 3.3 gm/dl (3.4-5.0); BUN Creatinine Ratio 15.3 (10-20); Bilirubin Direct 0.4 mg/dl (0-0.2); Bilirubin,Total 1.2 mg/dl (0.2-1.0); Calcium 7.9 mg/dl (8.6-10.3); Creatinine Clr Calc Pharmacy 68.5 ml/min; Est GFR (African American) 91.4 ml/min; Est GFR (Non-African American) 78.9 ml/min; Potassium 3.6 mmol/L (3.5-5.1); Total Protein 5.3 gm/dl (6.0-8.3)
[2022-08-13] MEDS: ENOXAPARIN INJ 30 MG/0.3 ML SYR SQ SCH (08:02)
[2022-08-13] MEDS: PANTOprazole 40 MG in SYRINGE 0 ML IV SCH (12:49)
--- NOTE | 2022-08-13 15:10 | History & Physical Bridge Note ---
Date of Service August 13, 2022 History & Physical Bridge Note I have examined the patient, reviewed the History & Physical and in the interval since the performance of the History & Physical I have noted the following changes of clinical significance: no changes noted EUS/ERCP Patient was explained in detail regarding risks, benefits, limitations and alternatives of the above endoscopic procedure. Risks of intravenous sedation used for procedure were also explained. Risks include, but not limited to perforation, bleeding, infection, respiratory distress, cardiac arrest and . Patient is also aware about the possibility of missed lesion. Patient's questions were answered. The patient verbalized understanding the information and agreed to undergo the procedure.
[2022-08-13] MEDS ORDERED: ONDANSETRON INJ 2 MG/ML 2 ML VIAL IV PRN (15:26)
[2022-08-13] MEDS ORDERED: ePHEDrine sulfate 50 MG/ML AMP IV PRN (15:26)
[2022-08-13] MEDS ORDERED: ATROPINE SULFATE 0.1 MG/ML 10ML SYR IV PRN (15:26)
[2022-08-13] MEDS ORDERED: fentaNYL citrate PF 100 MCG/2 ML VIAL IV PRN (15:26)
[2022-08-13] MEDS ORDERED: fentaNYL citrate PF 100 MCG/2 ML VIAL ONE (15:30)
[2022-08-13] MEDS ORDERED: ONDANSETRON INJ 2 MG/ML 2 ML VIAL ONE (15:30)
[2022-08-13] MEDS ORDERED: LIDOCAINE 2% MPF LOCAL 5 ML VIAL ONE (15:30)
[2022-08-13] MEDS ORDERED: PROPOFOL IV EMULSION 10 MG/ML 20 ML VIAL IV ONE (15:30)
[2022-08-13] MEDS ORDERED: INDOMETHACIN 50 MG SUPP PR ONE (15:59)
--- NOTE | 2022-08-13 16:10 | Operative Report ---
Post Operative Report Pre & Post Diagnosis Operation Date: 08/13/22 07:00 Pre-Op Diagnosis: ACUTE CHOLECYSTITIS STATUS POST LAP TIP I identified the patient and participated in the time-out.: Yes Procedure Operation Date: 08/13/22 07:00 Actual Procedures p Esophagogastroduodenoscopy - Julian Shields MD s Endoscopic Ultrasonography Upper - Julian Shields MD Surgeon Julian Shields MD Software Sales Consultant None Estimated Blood Loss 5 Findings See Below (Choledocholithiasis removed.) Specimens None Description of Procedure EUS/ERCP I attest to the content of the Intraoperative Record and any orders documented therein. Any exceptions are noted below.
--- NOTE | 2022-08-13 16:18 | GI REPORT ---
Patient Name: Curt Romero Procedure Date: 08/13/2022 3:33 PM Date of : 1935 Admit Type: Inpatient Age: 87 Gender: Male Attending MD: Julian Shields MD, Procedure: Upper GI endoscopy Providers: Julian Shields MD Referring MD: Orestes Villarreal Indications: Abdominal pain Medicines: General Anesthesia Complications: No immediate complications. Estimated Blood Loss: Estimated blood loss: none. Procedure: Pre-Anesthesia Assessment: - Prior to the procedure, a History and Physical was performed, and patient medications, allergies and sensitivities were reviewed. The patient's tolerance of previous anesthesia was reviewed. - The risks and benefits of the procedure and the sedation options and risks were discussed with the patient. All questions were answered and informed consent was obtained. - Patient identification and proposed procedure were verified prior to the procedure by the physician and the nurse. The procedure was verified in the procedure room. - Pre-procedure physical examination revealed no contraindications to sedation. After obtaining informed consent, the endoscope was passed under direct vision. Throughout the procedure, the patient's blood pressure, pulse, and oxygen saturations were monitored continuously. The Endoscope was introduced through the mouth, and advanced to the second part of duodenum. The upper GI endoscopy was accomplished without difficulty. The patient tolerated the procedure well. Findings: The examined esophagus was normal. A small hiatal hernia was present. The entire examined stomach was normal. The duodenal bulb and second portion of the duodenum were normal. Small periampullary diverticulum seen. Impression: - Normal esophagus. - Small hiatal hernia. - Normal stomach. - Normal duodenal bulb and second portion of the duodenum. - No specimens collected. Recommendation: - Perform an upper endoscopic ultrasound (UEUS) today. Julian Shields MD 08/13/2022 4:17:49 PM This report has been signed electronically. Note Initiated On: 08/13/2022 3:33 PM Number of Addenda: 0 I attest to the content of the Intraoperative Record and orders documented therein, exceptions below {[id number]}
--- NOTE | 2022-08-13 16:20 | GI REPORT ---
Patient Name: Curt Romero Procedure Date: 08/13/2022 3:32 PM Date of : 1935 Admit Type: Inpatient Age: 87 Gender: Male Attending MD: Julian Shields MD, Procedure: Upper EUS Providers: Julian Shields MD Referring MD: Orestes Villarreal Indications: Elevated liver enzymes, Suspected choledocholithiasis Medicines: General Anesthesia Complications: No immediate complications. Estimated Blood Loss: Estimated blood loss: none. Procedure: Pre-Anesthesia Assessment: - Prior to the procedure, a History and Physical was performed, and patient medications, allergies and sensitivities were reviewed. The patient's tolerance of previous anesthesia was reviewed. - The risks and benefits of the procedure and the sedation options and risks were discussed with the patient. All questions were answered and informed consent was obtained. - Patient identification and proposed procedure were verified prior to the procedure by the physician and the nurse. The procedure was verified in the procedure room. - Pre-procedure physical examination revealed no contraindications to sedation. After obtaining informed consent, the endoscope was passed under direct vision. Throughout the procedure, the patient's blood pressure, pulse, and oxygen saturations were monitored continuously. The scope was introduced through the mouth, and advanced to the second part of duodenum. The upper EUS was accomplished without difficulty. The patient tolerated the procedure well. Findings: ENDOSONOGRAPHIC FINDING: : There was no sign of significant endosonographic abnormality in the ampulla. One stone was visualized endosonographically in the common bile duct. It was hyperechoic and characterized by shadowing. Evidence of a previous cholecystectomy was identified endosonographically. There was no sign of significant endosonographic abnormality in the visualized portion of the liver. Homogeneous parenchyma was identified. Impression: - There was no sign of significant pathology in the ampulla. - One stone was visualized endosonographically in the common bile duct. - Evidence of a cholecystectomy. - There was no evidence of significant pathology in the visualized portion of the liver. Recommendation: - Perform an ERCP today. Julian Shields MD 08/13/2022 4:19:49 PM This report has been signed electronically. Note Initiated On: 08/13/2022 3:32 PM Number of Addenda: 0 I attest to the content of the Intraoperative Record and orders documented therein, exceptions below {[id number]}
--- NOTE | 2022-08-13 16:22 | GI REPORT ---
Patient Name: Curt Romero Procedure Date: 08/13/2022 3:27 PM Date of : 1935 Admit Type: Inpatient Age: 87 Gender: Male Attending MD: Julian Shields MD, Procedure: ERCP Providers: Julian Shields MD Referring MD: Orestes Villarreal Indications: For therapy of bile duct stone(s) Medicines: General Anesthesia Complications: No immediate complications. Estimated Blood Loss: Estimated blood loss: none. Procedure: Pre-Anesthesia Assessment: - Prior to the procedure, a History and Physical was performed, and patient medications, allergies and sensitivities were reviewed. The patient's tolerance of previous anesthesia was reviewed. - The risks and benefits of the procedure and the sedation options and risks were discussed with the patient. All questions were answered and informed consent was obtained. - Patient identification and proposed procedure were verified prior to the procedure by the physician and the nurse. The procedure was verified in the procedure room. - Pre-procedure physical examination revealed no contraindications to sedation. After obtaining informed consent, the scope was passed under direct vision. Throughout the procedure, the patient's blood pressure, pulse, and oxygen saturations were monitored continuously. The Duodenoscope was introduced through the mouth, and advanced to the duodenum and used to inject contrast into the bile duct. The ERCP was accomplished without difficulty. The patient tolerated the procedure well. Findings: A dragline mechanic film of the abdomen was obtained. Surgical clips, consistent with a previous cholecystectomy, were seen in the area of the right upper quadrant of the abdomen. The esophagus was successfully intubated under direct vision. The scope was advanced to a normal major papilla in the descending duodenum without detailed examination of the pharynx, larynx and associated structures, and upper GI tract. The upper GI tract was grossly normal. The major papilla was on the rim of a diverticulum. A 0.025 inch x 270 cm angled Visiglide wire was passed into the biliary tree. The short-nosed traction sphincterotome was passed over the guidewire and the bile duct was then deeply cannulated. Contrast was injected. I personally interpreted the bile duct images. Ductal flow of contrast was adequate. Image quality was adequate. Contrast extended to the main bile duct. Opacification of the entire biliary tree except for the gallbladder was successful. The maximum diameter of the ducts was 8 mm. Biliary sphincterotomy was made with a monofilament traction (standard) sphincterotome using ERBE electrocautery. There was no post-sphincterotomy bleeding. The biliary tree was swept with a 12 mm balloon starting at the bifurcation. One stone was removed. No stones remained. Indomethacin 100 mg was given via suppository to decrease the risk of post-ERCP pancreatitis (PEP). Impression: - Choledocholithiasis was found. Complete removal was accomplished by biliary sphincterotomy and balloon extraction. Recommendation: - Return patient to [facility] for ongoing care. - Clear liquid diet today, then advance as tolerated. Julian Shields MD 08/13/2022 4:22:02 PM This report has been signed electronically. Note Initiated On: 08/13/2022 3:27 PM Number of Addenda: 0 I attest to the content of the Intraoperative Record and orders documented therein, exceptions below {[id number]}
--- NOTE | 2022-08-13 16:22 | Hospitalist Progress Note ---
Date of Service August 13, 2022 Assessment & Plan (1) Acute cholecystitis: Plan: Acute cholecystitis S/P Laparoscopic Cholecystectomy by on 08/11/2022 Plan for ERCP today given suspicion for CBD stone/sludge LFTs trending down Appreciate GI, surgery input Monitor LFTs N.p.o. for now Pain control (2) Mild HTN: Plan: Continue amlodipine Resume Lasix as able (3) HLD (hyperlipidemia): Plan: On statin (4) GERD (gastroesophageal reflux disease): Plan: Continue PPI Plan DVT Px: SCDs for now CODE STATUS Full code Disposition PT OT prior to discharge Admission and Anticipated Discharge Date Admission Date: August 13, 2022 Subjective Patient is seen and examined at bedside this morning States having abdominal tenderness but otherwise denies any significant abdominal pain Plan for ERCP today Denies any chest pain, shortness of breath, dizziness, nausea, abdominal pain Sitting on bed during my encounter No other complaints Review of Systems Review of Systems: All systems reviewed & are unremarkable except as noted in Subjective Physical Exam Physical Exam: Physical Exam: Vitals signs as noted above General Appearance:Moderately built and nourished, Elderly, no apparent distress Head: normocephalic, Atraumatic Eyes: normal inspection, EOMI Neck: supple, Trachea midline Respiratory/Chest: Normal breath sounds, CTA, No accessory muscle use Cardiovascular: S1, S2, No murmur Abdomen/GI:Soft, mild tender, +surgical scars, Bowel sounds present Extremities/Musculoskeletal:normal inspection, no edema Neurologic/Psych:AAOX3, grossly no focal neurological deficits Skin: normal color, warm Results & Data Results & Data Vital Signs (Past 12 Hours) Vital Signs Temp Pulse Pulse Resp BP Pulse Ox O2 Del Method 08/13/22 15:15 36.8 C 73 14 178/89 H 95 Room Air 08/13/22 07:30 Room Air 08/13/22 07:35 36.9 C 73 18 146/73 H 92 Room Air Laboratory Results Short CBC 08/13/22 Range/Units 06:17 WBC 7.52 (4.8-10.8) K/ul Hgb 14.2 (14.0-18.0) g/dl Hct 42.3 (42.0-52.0) % Plt Count 151 (130-400) K/uL [facility] 08/13/22 06:17 Sodium 141 Potassium 3.6 Chloride 108 H Carbon Dioxide 27 BUN 13 Creatinine 0.85 Glucose 93 Calcium 7.9 L Liver Function 08/13/22 Range/Units 06:17 Total Bilirubin 1.2 H D (0.2-1.0) mg/dl Direct Bilirubin 0.4 H (0-0.2) mg/dl AST 142 H (13-39) U/L ALT 412 H (7-52) U/L Alkaline Phosphatase 53 (34-104) U/L Albumin 3.3 L (3.4-5.0) gm/dl
[2022-08-13] MEDS ORDERED: GLUCAGON FOR INJ 1 MG VIAL ONE (16:27)
--- NOTE | 2022-08-13 16:43 | Anesthesiology Progress Note ---
Date of Service August 13, 2022 Anesthesia Post Procedure Vital Signs Vital Signs: Temp Pulse Pulse Resp BP BP Pulse Ox 08/13/22 16:35 61 16 152/80 H 96 08/13/22 16:25 67 17 148/74 H 97 08/13/22 16:19 97.3 F L 63 16 138/76 96 08/13/22 15:15 98.2 F 73 14 178/89 H 95 08/13/22 07:30 08/13/22 07:35 98.4 F 73 18 146/73 H 92 08/12/22 20:28 98.6 F 62 16 130/72 96 O2 Del Method O2 Flow Rate 08/13/22 16:35 Nasal Cannula 2 08/13/22 16:25 Nasal Cannula 2 08/13/22 16:19 Nasal Cannula 2 08/13/22 15:15 Room Air 08/13/22 07:30 Room Air 08/13/22 07:35 Room Air 08/12/22 20:28 Room Air Pain Intensity Medial Chest: Pain Intensity: 1 Transfer of Care Handoff Completed per policy Notes Mental Status: alert / awake / arousable and participated in evaluation Patient Amnestic to Procedure: Yes Nausea / Vomiting: adequately controlled Pain: adequately controlled Airway Patency, RR, SpO2: stable & adequate BP & HR: stable & adequate Hydration State: stable & adequate Anesthetic Complications: no major complications apparent and Pt Satisfied with anesthetic care
[2022-08-13] MEDS ORDERED: hydrALAZINE 10 MG TAB PO PRN (17:07)
--- NOTE | 2022-08-13 17:36 | Fluoroscopy Report ---
[place] ERCP biliary ductal CLINICAL HISTORY: ADD ON ERCPacute right upper quadrant abdominal pain COMPARISON STUDY: CT abdomen and pelvis 08/11/2022 FLUOROSCOPY TIME: 29.7 seconds FLUOROSCOPY IMAGES: 10 EXPOSURE DOSE: 9.96 mGy FINDINGS: Endoscope is present within the duodenum. There is retrograde cannulation of the common jw e duct with injection of contrast. Subsequent images demonstrate apparent balloon sweep of the common bile duct which demonstrates no filling defects or strictures. Cholecystectomy with partially opacif ied cystic duct. No intrahepatic or extrahepatic biliary ductal dilation identified. Contrast noted w ithin the duodenum. IMPRESSION: Fluoroscopic assistance as above. ACT 112: Negative or not required by law. Electronically signed by: Cesario Tellez M.D. 08/13/2022 5:35 PM
[2022-08-13] MEDS: ATORVASTATIN 20 MG TAB PO SCH (20:26)
[2022-08-13] MEDS: GABAPENTIN 300 MG CAP PO SCH (20:26)
[2022-08-13] MEDS: amLODIPine BESYLATE 5 MG TAB PO SCH (20:26)
[2022-08-14] MEDS ORDERED: Nursing to Pharmacy Communication SCH (00:45)
[2022-08-14 06:57] LABS: Hematocrit (blood only) 41.7 % (42.0-52.0); Hemoglobin 14.4 g/dl (14.0-18.0); Mean Corpuscular Hemoglobin 29.8 pg (25.0-34.0); Mean Corpuscular Hgb Conc 34.5 g/dL (32.0-36.0); Mean Corpuscular Volume 86.3 fL (80.0-100.0); Mean Platelet Volume 10.3 fL (9.4-12.4); Platelet Count 169 K/uL (130-400); RDW Coefficient of Variation 13.7 % (11.5-14.5); RDW Standard Deviation 43.2 fL (36.4-46.3); Red Blood Count 4.83 M/uL (4.70-6.10); White Blood Count 10.56 K/ul (4.8-10.8)
[2022-08-14 07:11] LABS: Albumin Globulin Ratio 1.7 (0.9-2); Albumin Level 3.3 gm/dl (3.4-5.0); BUN Creatinine Ratio 16.2 (10-20); Bilirubin,Total 1.2 mg/dl (0.2-1.0); Calcium 7.9 mg/dl (8.6-10.3); Creatinine Clr Calc Pharmacy 78.6 ml/min; Est GFR (African American) 96.8 ml/min; Est GFR (Non-African American) 83.5 ml/min; Magnesium 1.7 mg/dl (1.7-2.4); Potassium 3.4 mmol/L (3.5-5.1); Total Protein 5.3 gm/dl (6.0-8.3)
--- NOTE | 2022-08-14 08:18 | Surgery Progress Note ---
Date of Service August 14, 2022 Assessment & Plan (1) Elevated LFTs: (2) Acute cholecystitis: Plan POD #3 status post laparoscopic cholecystectomy POD #1 s/p ERCP with stone extraction doing well labs decreasing advance diet as tolerated probable D/C to home today after lunch Admission and Anticipated Discharge Date Admission Date: August 13, 2022 Subjective He is doing well this morning. ERCP yesterday with stone extraction and sphincterotomy. Tolerating clear liquids. No nausea or vomiting. No pain. Physical Exam Physical Exam: NAD, & O x3 Abdomen: Soft, nontender, nondistended; incisions healing well without erythema or discharge Dermabond in place Results & Data Vital Signs (Past 12 Hours) Vital Signs Temp Pulse Resp BP Pulse Ox O2 Del Method 08/14/22 07:40 36.8 C 67 17 139/71 95 Room Air 08/13/22 20:25 36.6 C 64 16 130/77 95 Room Air
[2022-08-14] MEDS: SODIUM CHLORIDE 0.9% 1000ML 1,000 ML IV SCH (08:23)
[2022-08-14] MEDS: ENOXAPARIN INJ 30 MG/0.3 ML SYR SQ SCH (08:50)
--- NOTE | 2022-08-14 09:30 | Gastroenterology Progress Note ---
Date of Service August 14, 2022 Assessment & Plan (1) Choledocholithiasis: Plan: S/P ERCP w extraction, now doing well. Plan No GI contraindication to a regular diet, would defer to surgery. No GI contraindication to discharge, again, would defer to surgery. No OP f/u GI procedures needed. GI will sign off. Please notify us of new/worsening GI issues. Admission and Anticipated Discharge Date Admission Date: August 13, 2022 Supervising Physician Co-Signing Physician Notes Patient feeling quite good- dressed and ready for discharge benign abdominal exam. Agree with pe and further plan of care as documented. Subjective 87-year-old male admitted on 08/11 with cholecystitis underwent uncomplicated lap jose r on that day then LFTs increased the next morning. Underwent ERCP yesterday by Dr. Shields. With sphincterotomy and stone extraction, no stenting was needed. LFTs continuing to improve. This morning patient feels well. Denies abdominal pain. Taking clear liquids po without any nausea or pain. Review of Systems Review of Systems: ROS: Gen: Denies weakness, fevers, weight loss Eyes: No eye redness, or pain, no recent vision changes Resp: No SOB, no cough Cardio: No palpitations/irregular beats, no chest pain GI: Right upper quadrant pain resolved since surgery now very minimal diffuse abdominal discomfort : Denies pain on urination Skin: No jaundice, itching or new rashes Total of 12 systems reviewed all others negative Physical Exam Constitutional: WD/WN, vitals as above Eyes: PERRL, conjunctivae normal, anicteric sclerae ENMT: external ear and nose normal, oropharynx normal Neck: trachea midline, no thyromegaly Respiratory: normal respiratory effort, lungs clear to auscultation Cardiovascular: RRR, no murmur, no edema Gastrointestinal (Abdomen): normal bowel sounds, soft, nontender, no hepatosplenomegaly Incisions healing well. Musculoskeletal: no cyanosis or clubbing, extremities motor strength 5/5 Skin: no rashes, warm and dry Neurologic: patellar DTR's 2+ bilat, sensation intact Psychiatric: A+Ox3, euthymic affect Lymphatic: no cervical or axillary lymphadenopathy Results & Data Vital Signs (Past 12 Hours) Vital Signs Temp Pulse Resp BP Pulse Ox O2 Del Method 08/14/22 07:40 36.8 C 67 17 139/71 95 Room Air Laboratory Results WBC 10.3, Hb 14.4, HCT 41.7, PLT S169. NA 140, K3.4, CL 107, CO2 26, BUN 7, CR 12, glucose 86. T. bili 1.2, AST 54, ALT 264, PLT S50 Diagnostic Findings ERCP 08/13: - Choledocholithiasis was found. Complete removal was accomplished by biliary sphincterotomy and balloon extraction. EUS 08/13: - There was no sign of significant pathology in the ampulla. - One stone was visualized endosonographically in the common bile duct. - Evidence of a cholecystectomy. - There was no evidence of significant pathology in the visualized portion of the liver. CTAP 08/11: 1. Findings consistent with acute cholecystitis. 2. No bowel obstruction. No bowel wall thickening. Moderate stool within the ascending colon. 3. Bladder wall thickening. This is likely chronic.
[2022-08-14] MEDS: PANTOprazole 40 MG in SYRINGE 0 ML IV SCH (10:03)
--- NOTE | 2022-08-14 12:59 | Hospitalist Progress Note ---
Date of Service August 14, 2022 Assessment & Plan (1) Acute cholecystitis: Plan: Acute cholecystitis S/P Laparoscopic Cholecystectomy by on 08/11/2022 S/p ERCP on 08/13/22 which showed choledocholithiasis with biliary sphincterotomy and ballon extraction LFTs trending down Tolerated diet well (2) Mild HTN: Plan: Continue amlodipine Continue home lasix (3) HLD (hyperlipidemia): Plan: On statin (4) GERD (gastroesophageal reflux disease): Plan: Continue PPI Plan Medically stable for discharge Admission and Anticipated Discharge Date Admission Date: August 13, 2022 Subjective Patient seen and examined Denied any complaints today Physical Exam Constitutional: + well hydrated; no acute distress Eyes: PERRL, conjunctivae normal, anicteric sclerae ENMT: external ear and nose normal, oropharynx normal Respiratory: normal respiratory effort, lungs clear to auscultation Cardiovascular: Rate/Rhythm: regular rate and regular rhythm S1 S2 Gastrointestinal (Abdomen): normal bowel sounds, soft, nontender, no hepatosplenomegaly Musculoskeletal: no cyanosis or clubbing, extremities motor strength 5/5 Neurologic: PERRL, EOMI, accommodation nl, no face palsy, no dysarthria Results & Data Results & Data Vital Signs (Past 12 Hours) Vital Signs Temp Pulse Pulse Resp BP BP Pulse Ox 08/14/22 10:33 36.8 C 64 67 17 139/71 130/72 95 08/14/22 07:40 36.8 C 67 17 139/71 95 O2 Del Method 08/14/22 10:33 08/14/22 07:40 Room Air Laboratory Results Abnormal lab results 08/14/22 08/14/22 Range/Units 05:32 05:32 Hct 41.7 L (42.0-52.0) % Potassium 3.4 L (3.5-5.1) mmol/L Calcium 7.9 L (8.6-10.3) mg/dl Total Bilirubin 1.2 H (0.2-1.0) mg/dl AST 54 H (13-39) U/L ALT 264 H (7-52) U/L Total Protein 5.3 L (6.0-8.3) gm/dl Albumin 3.3 L (3.4-5.0) gm/dl Globulin 2.0 L (2.5-4.0) gm/dl
--- NOTE | 2022-08-19 07:12 | Discharge Summary ---
Date of Service August 19, 2022 Admission HPI Per Admitting Provider 87-year-old gentleman presents with a 12-hour history of epigastric and lower chest pain radiating to the right side/right upper quadrant. He denies nausea or vomiting. He last ate at 6 PM last night. He denies fevers or chills. He has never had pain like this in the past. He has had a prior appendectomy. He denies cardiac history other than hypertension. He denies allergies to medications. Principal Diagnosis Acute cholecystitis, choledocholithiasis Discharge Data Allergies Allergy/AdvReac Type Severity Reaction Status Date / Time No Known Allergies Allergy Verified 07/24/22 08:17 Consultations 08/12/22 08:23 Consult Gastroenterology Routine Procedures Performed Operation Date: 08/13/22 07:00 Actual Procedures s Endoscopic Ultrasonography Upper - Julian Shields MD p Endoscopic Retrograde Cholangiopancreato sphincterotomy, with balloon sweep - Julian Shields MD s Esophagogastroduodenoscopy - Julian Shields MD Ordered Studies 08/11/22 09:22 CT abd pelvis IV con only Stat 08/13/22 [place] ERCP biliary ductal Routine 08/13/22 15:20 US upper EUS PACS images Routine Hospital Course (1) Choledocholithiasis: (2) Acute cholecystitis: Plan He was admitted from the emergency department taken to the operating room for laparoscopic cholecystectomy for acute cholecystitis, the details of which are dictated in a separate operative note. Postoperatively he was transferred in stable condition to the PACU and subsequently to the floor. DVT prophylaxis was maintained with SCD boots and Lovenox. We will start advance his diet as tolerated. Early ambulation and incentive spirometry were encouraged. Postoperative day 1, LFTs were noted to be elevated. He subsequently underwent ERCP with extraction of 1 stone from his common bile duct. He did well, and his labs returned to normal. His diet was advanced as tolerated. By the day of discharge, he was tolerating regular diet, not requiring any IV pain medications, labs were normal. He was discharged home in stable condition. He will follow-up in 2 weeks. He will call with any new or concerning symptoms. Total Time Total Time Spent Total Time Spent (In Minutes): 30 minutes Discharge Plan Discharge Items Patient Disposition: Home - Self-Care Reason For Visit: ACUTE CHOLECYSTITIS STATUS POST LAP TIP Discharge Diagnosis: acute cholecystitis, choledocholithiasis Activity: Per Instructions section Lifting: No more than 25 pounds Sexual Activity: Wait until after follow-up appointment Exercise/Sports: Wait until after follow-up appointment Non-emergency contact: Surgeon Call non-emergency contact if: you have any medication questions, your symptoms worsen, your pain is not controlled, your pain is worsening, your pain is unusual for you, your temperature is above 101.5, your wound has increased redness, your wound has increased drainage and your wound pain has increased Follow-up/Referrals: Orestes Villarreal MD [Physician] - 08/29/22 10:30 am Sudeep Hayden MD [Primary Care Provider] - (Date & Time 08/21/2022 11:00 AM Provider Sudeep Hayden MD [facility] ) Diet: Regular Addtl Attending Provider Instructions: Post-Surgical ~Discharge Instructions Activity Recommendations: - lifting limitation: (20 pounds for 2 weeks), - exercise/sex/sports limit: (nonstrenuous for 2 weeks), - driving or machine use limit: (none for 1 week), - Shower/bathe limit: (may shower beginning tomorrow) Diet: - Resume previous diet SPECIAL CARE INSTRUCTIONS: - May shower in 24 hours. Let water run over area and pat dry. - Leave dermabond in place. - Call the surgeon's office with any questions or concerns - - (ex. temperature higher than 101 degrees F, excessive bleeding or pain). MEDICATIONS: - Resume previous medications unless instructed otherwise by your surgeon. - Ibuprofen 600 mg every 6 hours with food - Percocet 1 every 4 hours, as needed for pain FOLLOW UP VISIT: - If not already scheduled, please call the office to schedule a two week follow-up appointment. Office number Pending Studies at Discharge: No Stand-Alone Forms: [employer], Smoking Cessation Medications and DC Order Prescriptions: New oxycodone-acetaminophen [Percocet] 5-325 mg tablet 1 tab PO Q6H PRN (Reason: pain) Qty: 10 0RF Continued ascorbic acid (vitamin C) [Vitamin C] 1,000 mg Tablet 1 g PO QAM atorvastatin [Lipitor] 20 mg Tablet 20 mg PO PM meclizine 12.5 mg Tablet 12.5 mg PO UD PRN (Reason: Vertigo) amlodipine 5 mg Tablet 5 mg PO QPM omeprazole 20 mg Capsule,Delayed Release(Dr/Ec) 20 mg PO QPM furosemide [Lasix] 20 mg Tablet 20 mg PO QAM saw palmetto 500 mg Capsule 500 mg PO QDL Rx Instructions: give with food (meal/snack) gabapentin 300 mg Tablet 300 mg PO HS cholecalciferol (vitamin D3) [Vitamin D3] 25 mcg (1,000 unit) Tablet 25 mcg PO QAM aspirin 81 mg Capsule 81 mg PO QPM Discharge Orders: Discharge Order (Routine); Ordered 08/14/22 Ordered By: Orestes Castro/Other Patient Handouts: Cholecystectomy, Gallstones Dc Admission Data Admit Date/Time: 08/13/22 15:08 Attending Provider: Orestes Villarreal Admit Provider: Orestes Villarreal Primary Care Provider: Sudeep Hayden Other Providers: Julian Shields ; Lorie Loving I. Other Interventions: Discharge Summary Assessment (RN) Last Done: 08/14/22 10:33
== END 2022-08-14 13:18 | disposition home or self-care (01) | DRG 419 ==
LOC: ED 07:39 → 3E 11:42 → OR 11:42